=== PATIENT | female | born 1985 | race Caucasian/White ===

== ENCOUNTER 2016-09-05 15:30 | Inpatient (IN) ==
[2016-09-05] MEDS ORDERED: Vancomycin 1,500 MG in D5% in Water 250 ML IV ONE (15:54)
[2016-09-05] MEDS ORDERED: 0.9 % Sodium Chloride 1,000 ML IV SCH (16:00)
[2016-09-05] MEDS ORDERED: 0.9 % Sodium Chloride 1,000 ML IV ONE ×2 (16:09→19:11)
[2016-09-05] MEDS ORDERED: *HR* FentaNYL (PF) 100 MCG/2 ML VIAL IVP ONE (16:10)
--- NOTE | 2016-09-05 16:11 | Emergency Department Note ---
Addendum entered and electronically signed by Luke Russo DO 09/05/16 19 :17: Addendum is for EKG documentation. EKG shows sinus tachycardia at 106 with normal axis and intervals. No ST elevation or depression. There are nonspecific septal T-wave inversions. No old EKG available at this time. Original Note: Disposition Clinical Impression: Cellulitis, Sepsis Disposition: Admitted As Inpatient Condition: Serious Time of Disposition: 19:14 Skin/Abscess/FB HPI Chief complaint: ED Fever Stated complaint: abcess, infection Time Seen by Provider: 09/05/16 15:53 Source: patient, family Mode of arrival: ambulatory Limitations: no limitations Nursing Notes Reviewed: Yes Vital Signs Reviewed: Yes HPI Narrative: 21-year-old female with history of IV drug abuse presents with abscess to the left antecubital area along with turning cellulitis, fever, chills, nausea without vomiting, and malaise. She states that she last used at that site probably 4 or 5 days ago. She denies any concern for foreign bodies. She denies history of prior abscesses that required drainage. She has no other significant past medical history. States that her symptoms came on over the last 24 hours abruptly. Pt Subjective Complaint: abscess/boil Home Medications Medication Instructions Recorded Confirmed No Known Home Drugs 09/05/16 09/05/16 Allergies Allergy/AdvReac Type Severity Reaction Status Date / Time Amoxicillin Allergy Intermediate Hives Verified 08/29/16 03:21 escitalopram [From Lexapro] Allergy Hives Verified 08/29/16 03:21 All systems ED: reviewed and negative except as stated. Past Medical History - Past Medical History Attestation: Yes The following information was validated with the patient. Source: patient Medical history: Reports: atrial fibrillation, hepatitis, hypertension, migraine , other Surgical history: Reports: (x4) Psychiatric history: Reports: anxiety, bipolar, depression RESIDENTIAL NURSE history: Reports: bilateral tubal ligation - Social History Smoking Status: Current every day smoker Smokeless Tobacco Status: No Alcohol use: Reports: none Drug use: Reports: cocaine, opiates, IVDU, prescription drug abuse Physical Exam - Head Head exam: atraumatic, normocephalic, normal inspection - Eye Eye exam: Present: normal appearance, PERRL, EOMI - ENT ENT exam: normal exam, normal oropharynx, mucous membranes moist - Neck Neck exam: Present: normal inspection, full ROM, trachea midline - Chest Chest inspection: Present: normal inspection, symmetric chest wall rise - Respiratory Respiratory exam: Clear to auscultation bilaterally without wheezes rales or rhonchi Cardiovascular Cardiovascular exam: Present: regular rate, normal rhythm, normal heart sounds - Abdominal Exam Abdominal exam: Present: soft, Non-Tender. Absent: tenderness, distention, guarding, rebound, rigidity - Extremities Exam Abscess and cellulitis to the left antecubital area with significant induration and tenderness. - Back Exam Back exam: Present: normal inspection, full ROM. Absent: tenderness, CVA tenderness (R), CVA tenderness (L) - Neurological Exam Neurological exam: Present: alert, oriented X3, CN II-XII intact - Psychiatric Psychiatric exam: Present: normal affect, normal mood - Skin Skin exam: Present: warm, dry, intact, normal color - General Limitations: no limitations General appearance: alert, in no apparent distress Course - Reevaluation(s) Reevaluation #1: Bedside ultrasound shows significant cobblestoning without any clear fluid collection. Margins drawn Time: 17:04 Reevaluation #2: Labs significant for leukocytosis to 14 and lactic acidosis to 2.2. No other significant chemistry abnormalities other than mild hypokalemia to 3.0. Time: 19:12 Reevaluation #3: Accepted by Dr. Castrejon Time: 19:14 Vital Signs Temperature 102.2 F H 09/05/16 15:43 Pulse Rate 118 09/05/16 15:43 Respiratory Rate 18 09/05/16 15:43 Blood Pressure 160/107 09/05/16 15:43 O2 Sat by Pulse Oximetry 97 09/05/16 15:43 Temperature 102.2 F H 09/05/16 15:43 Pulse Rate 115 09/05/16 19:30 Respiratory Rate 18 09/05/16 20:13 Blood Pressure 155/82 09/05/16 20:13 O2 Sat by Pulse Oximetry 97 09/05/16 19:30 Oxygen Delivery Oxygen Delivery Room Air Skin/Abscess/Foreign Body - Lab Data Result diagrams: 09/05/16 16:45 09/05/16 18:34 Lab Results 09/05/16 09/05/16 09/05/16 Range/Units 16:45 16:45 18:34 WBC 14.3 H (4.3-11.1) K/mcL RBC 4.60 (3.82-4.97) M/mcL Hgb 13.8 (11.5-15.4) g/dL Hct 40.5 (35.3-44.9) % MCV 88.0 (83.0-100.0) fL MCH 30.0 (28.0-33.3) pg MCHC 34.1 (31.6-35.5) g/dL RDW 12.3 (11.5-14.5) % Plt Count 169 (140-400) K/mcL MPV 10.6 (9.4-12.4) fL Immature Gran % 0.4 (0-4) % Seg Neutrophils % 81.7 % Lymphocytes % 10.7 % Monocytes % 6.6 % Eosinophils % 0.3 % Basophils % 0.3 % Neutrophils # 11.7 H (1.6-8.9) K/mcL Lymphocytes # 1.5 (0.6-4.6) K/mcL Monocytes # 0.9 (0.0-1.3) K/mcL Eosinophils # 0.0 (0.0-0.6) K/mcL Basophils # 0.0 (0.0-0.2) K/mcL Sodium 134 L (136-145) mEq/L Potassium 3.0 L (3.5-4.5) mEq/L Chloride 104 (98-109) mEq/L Carbon Dioxide 21 (19-29) mEq/L BUN 4 L (7-20) mg/dL Creatinine 0.67 (0.57-1.11) mg/dL Est GFR ( Amer) > 60 (> 60) Est GFR (Non-Af Amer) > 60 (> 60) BUN/Creatinine Ratio 6 (6-26) Glucose 107 H (70-99) mg/dL Calculated Osmolality 275 L (280-300) Lactic Acid 2.2 (0.5-2.2) mmol/L Calcium 7.8 L (8.6-10.8) mg/dL Critical Care Time Critical Care Time: Yes Total Critical Care Time: 35 Attestation: Tachycardia and likely early bacteremia with fever. High risk due to IV drug abuse and rapidly progressive symptoms. Fluid resuscitation and antibiotics IV was required Attestation Statement - Attestation Attestation: Dr Blackwell note: Patient was seen in conjunction with resident Dr. Abdelrahman Russo; please see his chart for complete documentation. I spent [id number] time with the patient and I agree with the patient's treatment and disposition. Heart rate and pain improved prior to admission. Cultures are pending. No indication for incision and drainage at this time. Antibiotics were ordered and started in the emergency room. Admitted in stable and improved condition
[2016-09-05 17:00] LABS: Basophils % 0.3 %; Eosinophils % 0.3 %; Hematocrit 40.5 % (35.3-44.9); Hemoglobin 13.8 g/dL (11.5-15.4); Immature Granulocytes % 0.4 % (0-4); Lymphocytes # 1.5 K/mcL (0.6-4.6); Lymphocytes % 10.7 %; Mean Corpuscular HGB Conc 34.1 g/dL (31.6-35.5); Mean Platelet Volume 10.6 fL (9.4-12.4); Monocytes # 0.9 K/mcL (0.0-1.3); Monocytes % 6.6 %; Neutrophils # 11.7 K/mcL (1.6-8.9); Platelet Count 169 K/mcL (140-400); Red Cell Distribution Width 12.3 % (11.5-14.5); Segmented Neutrophils % 81.7 %
[2016-09-05] MEDS ORDERED: *HR* HYDROmorphone (PF) 1 MG/ML SYRINGE IV ONE (18:07)
[2016-09-05] MEDS ORDERED: Ondansetron 4 MG/2 ML VIAL IV STA (18:25)
[2016-09-05 18:59] LABS: BUN/Creatinine Ratio 6 (6-26); Calcium 7.8 mg/dL (8.6-10.8); Carbon Dioxide 21 mEq/L (19-29); Chloride 104 mEq/L (98-109); Glucose 107 mg/dL (70-99); Osmolality,Calculated 275 (280-300); Sodium 134 mEq/L (136-145); eGFR For African Americans > 60 (> 60); eGFR For Non-African Americans > 60 (> 60)
[2016-09-05 19:00] LABS: Blood Urea Nitrogen 4 mg/dL (7-20)
[2016-09-05] MEDS ORDERED: 0.9 % Sodium Chloride 1,000 ML IVC ONE (19:04)
[2016-09-05] MEDS ORDERED: Naloxone 0.4 MG/ML INJ IVP PRN (20:07)
--- NOTE | 2016-09-05 20:21 | Internal Med History&Physical ---
Date of Encounter: 09/05/16 Time of Encounter: 19:45 Assessment and Plan (1) Cellulitis of left upper extremity Current visit: Yes Status: Acute 1. Blood cultures have been drawn in ER. 2. Pt received Vancomycin in ER -- will continue per pharmacy dosing. 3. Add IV Levaquin for broader spectrum coverage. 4. Follow clinically and adjust treatment per clinical results. (2) Abscess of left upper extremity Current visit: Yes Status: Suspected 1. Will obtain CT of LUE. 2. Antibiotics as above. 3. Will likely need surgical I&D if there is evidence of abscess on imaging. 4. Judicious pain control with Tylenol/Ibuprofen; Oxycodone for severe pain. Discussed with patient in detail. If necessary, will add IV opiates later, but will try oral regimen first. (3) Sepsis Current visit: Yes Status: Acute 1. Pt with fever, tachycardia, and leukocytosis. 2. Pt. well perfused with no evidence of shock. 3. Continue IVF, antibiotics, telemetry and monitor clinically. 4. Likely source is skin/soft tissue -- LUE cellulitis and suspected abscess. 5. Adjust antibiotics per culture results (blood and wound -- if applicable). Qualifiers: Sepsis type: sepsis due to unspecified organism Qualified Code(s): A41.9 - Sepsis, unspecified organism (4) Hypertension Current visit: Yes Status: Chronic 1. Monitor closely and treat PRN to maintain SBP < 150. 2. Likely secondary to crack/cocaine use. 3. Avoid beta blockers due to cocaine use. 4. Pain likely exacerbating hypertension -- judicious pain control as noted above. Qualifiers: Hypertension type: other secondary hypertension Qualified Code(s): I15.8 - Other secondary hypertension (5) DVT prophylaxis Current visit: Yes Status: Acute 1. Heparin SQ. Internal Medicine - H&P: HPI Chief complaint: left arm cellulitis and abscess Admitted From: Emergency Dept Plans for Post Hospital Care: Home History of present illness: Ms. Scott is a 31 year old female who presented to the ER this evening after being referred there by the urgent care. She presented to urgent care initially today with complaints of left arm pain and swelling, fever, chills, body aches, and limited range of motion of her left arm. She uses IV drugs regularly and likely developed cellulitis and abscess secondary to infection of her injection site. Upon initial assessment in the urgent care, she was immediately referred to the ER. In the ER, she had workup including labs, blood work, and EKG. Along with her clinical exam findings, she appeared to have evidence of cellulitis and likely early sepsis. Blood cultures were drawn and she was started on IV vancomycin. She was subsequently admitted to the hospitalist service. Upon my assessment of the patient, she is alert, oriented, and very compliant with the history and exam. She has obvious pain, inflammation, and limited range of motion in her left antecubital fossa/left arm. She is tachycardic and febrile. Otherwise, she is in no acute distress. She has been using prescription drugs, street drugs, and IV drugs since 2008. She was clean from December to May this past year and then relapsed in late May,. She last used some heroin earlier today. She states that the pain, swelling, fevers , chills, and range of motion limitation all started in the last 24 hours. She denies any chest pain, shortness of breath, vomiting, or diarrhea. She has never had infection and/or abscess from the injection site. She admits to having hepatitis C secondary to IV drug abuse. She denies any hepatitis B or HIV. She does admit to having history of hypertension but has not been treated. She also uses crack cocaine infrequently, which does not help her hypertension. Past Med Surg Social Fam HX - Past Medical History Attestation: Yes The following information was validated with the patient. Source: patient, old records reviewed Medical history: atrial fibrillation (paroxysmal), hepatitis (Hepatitis C), hypertension, migraine, other (IVDA) Psychiatric history: anxiety, bipolar, depression - Past Surgical History Surgical History: (x4) - Social History Smoking Status: Current every day smoker Smokeless Tobacco Status: No Alcohol use: none Drug use: cocaine, opiates, IVDU, prescription drug abuse Current living situation: Home - Independent Activity Level: Independent ambulation Recent Out of Country Travel Within the Last 8 Weeks: No - Family History Mother Living Status: Still Living Father Living Status: (MVA) Internal Medicine - H&P: Meds No Known Home Drugs 09/05/16 [History] Allergies Amoxicillin Allergy (Intermediate, Verified 08/29/16 03:21) Hives escitalopram [From Lexapro] Allergy (Verified 08/29/16 03:21) Hives - Constitutional Constitutional: chills, fever(s), no night sweats - EENT Eyes: no blurry vision, no change in vision, no photophobia Ears: no ear pain, no tinnitus Nose, mouth and throat: no nasal congestion, no nasal discharge, no sinus pressure, no sore throat - Cardiovascular Cardiovascular ROS IM: no chest pain, no dyspnea, no dyspnea on exertion, no edema - Respiratory Respiratory: no cough, no dyspnea, no hemoptysis, no dyspnea on exertion, no wheezing, no excessive phlegm production, no change in phlegm color - Gastrointestinal Gastrointestinal: no abdominal pain, no diarrhea, no hematemesis, no hematochezia, no melena, no vomiting - Genitourinary Genitourinary: no dysuria, no flank pain, no hematuria - Musculoskeletal Musculoskeletal ROS IM: arthralgias, back pain, joint swelling, limited range of motion (DAVID -- antecubital fossa), myalgias, no muscle weakness - Integumentary Integumentary IM: rash, other (track mcneill -- injection sites), no unusual bruising, no jaundice - Neurological Neurological ROS: no dizziness, no focal weakness, no frequent falls, no vertigo - Psychiatric Psychiatric: no anxiety, no depression - Endocrine Endocrine IM: no cold intolerance, no heat intolerance, no polydipsia, no polyuria - Hematologic/Lymphatic Hematologic/Lymphatic: no easy bleeding, no lymphadenopathy - Allergic/Immunologic Allergic/Immunologic: no wheezing, no GI upset with certain foods - Constitutional Vitals: Temp Pulse Resp BP Pulse Ox 102.2 F H 115 18 154/92 97 09/05/16 15:43 09/05/16 19:30 09/05/16 19:30 09/05/16 19:30 09/05/16 19:30 General appearance: Present: cooperative, mild distress, A&O X 3, pleasant, answers questions appropriately - Head Head exam: Present: atraumatic, normal inspection - Expanded Head Exam Head exam expanded: Absent: abrasion, contusion, general tenderness - Eye Eye exam: Present: EOMI, normal appearance, PERRL (3-4mm and equally reactive). Absent: scleral icterus Pupils: Present: normal accommodation - ENT ENT exam: Present: mucous membranes moist, normal exam, normal oropharynx - Neck Neck exam general surgery: Present: full ROM, normal inspection, supple. Absent : lymphadenopathy, tenderness, nuchal rigidity, thyromegaly - Respiratory Respiratory exam: Present: CTAB. Absent: chest wall tenderness, rales, respiratory distress, rhonchi, wheezes - Cardiovascular Cardiovascular exam: Present: RRR, +S1, +S2, tachycardia. Absent: diastolic murmur, irregular rhythm, JVD, systolic murmur - GI/Abdominal GI/Abdominal exam: Present: soft. Absent: guarding, hepatomegaly, mass, rebound , splenomegaly, tenderness - Extremities Exam Extremities exam: Present: joint swelling (left antecubital fossa/elbow with swelling and limited ROM), normal capillary refill, warm, radial pulses palpable and symetrical. Absent: calf tenderness, pedal edema Additional comments: LUE with intact neuro-vasculature; pain with extension of LUE/elbow. Normal flexion and extension of left hand/wrist. - Back Exam Back exam: Present: tenderness (lumbar spine -- mild; no redness, fluctuance, or warmth noted). Absent: CVA tenderness (L), CVA tenderness (R) - Neurological Exam Neurological exam: Present: alert, CN II-XII intact, oriented X3, reflexes normal (exception -- not performed on LUE due to pain and infection of left antecubital fossa), no focal deficits (normal BLE neurologic exam and RUE; LUE neurologic exam intact with the exception of pain in LUE with extension of LUE/ elbow). Absent: motor sensory deficit - Psychiatric Psychiatric exam: Present: normal affect, normal mood - Skin Skin exam: Present: dry, rash (redness/swelling/warmth to left antecubital fossa -- no fluctuance noted at this time), warm. Absent: mottled, petechiae Internal Med - H&P Results - Labs CBC & Chem 7: 09/05/16 16:45 09/05/16 18:34 - EKG Data -: EKG Interpreted by Myself EKG shows normal: sinus rhythm Rate: tachycardia - EKG Data Prior EKG available for review: no EKG comments: 09/05/16 20:31 Sinus tachycardia with no acute changes
[2016-09-05] MEDS: *HR* OxyCODONE Immed Rel 5 MG TABLET PO PRN (21:17)
[2016-09-05 21:42] LABS: Bilirubin,Urine Negative (Negative); Blood,Urine Negative (Negative); Clarity,Urine Clear (Clear); Color,Urine Yellow (Yellow); Glucose,Urine (UA) Normal (Normal); Ketones,Urine Negative (Negative); Leukocyte Esterase,Urine Negative (Negative); Nitrite,Urine Negative (Negative); Protein,Urine Negative (Neg-Trace); Specific Gravity,Urine 1.006 (1.010-1.025); Urobilinogen,Urine Normal (Normal)
[2016-09-05] MEDS: Acetaminophen 325 MG TABLET PO PRN (22:09)
[2016-09-05] MEDS: Levofloxacin 750 MG/150 ML 750 MG/150 ML BAG IVPB SCH (22:28)
[2016-09-05] MEDS: *HR* Heparin 5,000 UNIT/ML VIAL SQ SCH (22:30)
[2016-09-05] MEDS: 0.9 % Sodium Chloride w KCl 20 MEQ/1,000 ML MLS IVC SCH (22:30)
[2016-09-05 23:18] LABS: Amphetamine Screen,Urine Negative ng/mL (Cutoff=1000); Barbiturate Screen,Urine Negative ng/mL (Cutoff=200); Benzodiazepines Screen,Urine Positive ng/mL (Cutoff=200); Cannabinoid Screen,Urine Negative ng/mL (Cutoff = 50); Cocaine Screen,Urine Positive ng/mL (Cutoff= 300); Opiate Screen,Urine Positive ng/mL (Cutoff=300); Phencyclidine Screen,Urine Negative ng/mL (Cutoff=25)
[2016-09-06] MEDS: *HR* Morphine 2 MG/ML SYRINGE IVP PRN ×3 (00:21→10:53)
[2016-09-06] MEDS: Ibuprofen 400 MG TABLET PO PRN (01:17)
[2016-09-06 05:22] LABS: Basophils % 0.2 %; Eosinophils % 0.1 %; Hematocrit 39.1 % (35.3-44.9); Hemoglobin 13.1 g/dL (11.5-15.4); Immature Granulocytes % 0.7 % (0-4); Lymphocytes # 1.6 K/mcL (0.6-4.6); Lymphocytes % 6.8 %; Mean Corpuscular HGB Conc 33.5 g/dL (31.6-35.5); Mean Corpuscular Hemoglobin 29.3 pg (28.0-33.3); Mean Corpuscular Volume 87.5 fL (83.0-100.0); Mean Platelet Volume 10.8 fL (9.4-12.4); Monocytes % 8.2 %; Neutrophils # 20.2 K/mcL (1.6-8.9); Platelet Count 168 K/mcL (140-400); Red Blood Count 4.47 M/mcL (3.82-4.97); Red Cell Distribution Width 12.3 % (11.5-14.5)
[2016-09-06 05:37] LABS: Basophils # 0.1 K/mcL (0.0-0.2)
[2016-09-06 05:38] LABS: Alanine Aminotransferase 11 Units/L (0-55); Albumin/Globulin Ratio 0.9 (1.1-2.2); Alkaline Phosphatase 67 Units/L (38-126); Aspartate Amino Transferase 10 Units/L (5-34); BUN/Creatinine Ratio 8 (6-26); Bilirubin,Total 0.8 mg/dL (0.2-1.2); Blood Urea Nitrogen 6 mg/dL (7-20); Calcium 8.6 mg/dL (8.6-10.8); Carbon Dioxide 21 mEq/L (19-29); Chloride 110 mEq/L (98-109); Globulin 3.4 g/dL (2.4-3.5); Glucose 104 mg/dL (70-99); Magnesium 1.2 mg/dL (1.6-2.6); Osmolality,Calculated 286 (280-300); Potassium 3.8 mEq/L (3.5-4.5); Sodium 139 mEq/L (136-145); Total Protein 6.4 g/dL (6.0-8.3); eGFR For African Americans > 60 (> 60); eGFR For Non-African Americans > 60 (> 60)
[2016-09-06] MEDS ORDERED: Magnesium Sulfate 2 GM in D5% in Water 100 ML IVPB ONE (06:17)
[2016-09-06] MEDS: *HR* Heparin 5,000 UNIT/ML VIAL SQ SCH ×2 (06:34→20:01)
[2016-09-06 06:42] LABS: Toxic Granulation Present (Not Present)
[2016-09-06 06:43] LABS: Platelet Estimate Normal (Normal)
[2016-09-06] MEDS ORDERED: Vancomycin 1,000 MG in D5% in Water 250 ML IVPB SCH (07:00)
[2016-09-06] MEDS ORDERED: SUMAtriptan succinate 25 MG TABLET PO ONE (08:11)
[2016-09-06] MEDS: Vancomycin 1,000 MG in D5% in Water 250 ML IVPB SCH ×2 (08:25→19:51)
[2016-09-06] MEDS: Levofloxacin 750 MG/150 ML 750 MG/150 ML BAG IVPB SCH (08:26)
[2016-09-06] MEDS: *HR* OxyCODONE Immed Rel 5 MG TABLET PO PRN ×2 (08:33→17:38)
[2016-09-06] MEDS: 0.9 % Sodium Chloride w KCl 20 MEQ/1,000 ML MLS IVC SCH ×2 (08:34→16:39)
--- NOTE | 2016-09-06 11:48 | Internal Med Progress Note ---
Date of Encounter: 09/06/16 Time of Encounter: 09:00 - Time Spent With Patient Greater than 35 minutes - Subjective Interval history: Patient is a 31-year-old female admitted for left arm cellulitis. Her past medical history is significant for paroxysmal A. fib, hepatitis C, hypertension , migraine, and IV drug use. Patient was seen and examined, she still complains of left arm pain and the swelling. Limited the range of movement of left elbow. On Vanco and Levaquin. The size of cellulitis is enlarged. Will add clindamycin to cover anaerobic. Continue IV fluid. Lactic acid level is getting down. Assessment and plan: 1: Cellulitis: Patient has cellulitis on left arm, CAT scan shows no abscess, no septic arthritis. Will continue antibiotic Vanco, Levaquin, add clindamycin to cover anaerobic. Follow-up a blood culture. Patient is at high risk because she is on vancomycin, need close monitoring. 2: Sepsis: Patient has fever, tachycardia, leukocytosis, meets criteria of sepsis. IV fluid resuscitation started the ER, on IV antibiotics. Lactate level gets down after IV fluid. 3: Hypertension: Adequate pain control, hydralazine IV when necessary. Closely follow-up of BP. Avoid beta lito because patient is a cocaine user. 4: IV drug abuse: Continue current treatment, patient said she had HIV tests years before, which was negative. 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 5: DVT prophylaxis: Heparin subcutaneously. - Constitutional Vitals: Temp Pulse Resp BP Pulse Ox 99.2 F 102 22 138/92 98 09/06/16 08:17 09/06/16 08:17 09/06/16 08:17 09/06/16 08:17 09/06/16 08:17 General appearance: Present: cooperative, mild distress, A&O X 3, pleasant, answers questions appropriately - Head Head exam: Present: atraumatic, normocephalic - Eye Eye exam: Present: PERRL, conjuntiva pink, sclera anicteric Pupils: Present: PERRL - Neck Neck exam general surgery: Present: supple, trachea midline. Absent: lymphadenopathy - Respiratory Respiratory exam: Present: CTAB. Absent: accessory muscle use, rales, rhonchi, wheezes - Cardiovascular Cardiovascular exam: Present: RRR, +S1, +S2. Absent: diastolic murmur, gallop, rubs, systolic murmur - GI/Abdominal GI/Abdominal exam: Present: normal bowel sounds, soft, no peritoneal signs. Absent: distended, tenderness - Extremities Exam Extremities exam: Present: warm, radial pulses palpable and symetrical. Absent : calf tenderness, cyanotic, pedal edema Additional comments: Left arm is swelling, with redness and warmth of the skin, severe tenderness. - Neurological Exam Neurological exam: Present: CN II-XII intact, oriented X3, no focal deficits. Absent: pronater drift, facial droop, speech deficit - Skin Skin exam: Present: dry, intact Internal Medicine: Result - Labs CBC & Chem 7: 09/06/16 04:37 09/06/16 04:37 Labs: Short CBC 09/06/16 Range/Units 04:37 WBC 24.0 H D (4.3-11.1) K/mcL Hgb 13.1 (11.5-15.4) g/dL Hct 39.1 (35.3-44.9) % Plt Count 168 (140-400) K/mcL Neutrophils # 20.2 H (1.6-8.9) K/mcL BMP 09/06/16 04:37 Sodium 139 Potassium 3.8 Chloride 110 H Carbon Dioxide 21 BUN 6 L Creatinine 0.71 Glucose 104 H Calcium 8.6 Liver Function 09/06/16 Range/Units 04:37 Total Bilirubin 0.8 (0.2-1.2) mg/dL AST 10 (5-34) Units/L ALT 11 (0-55) Units/L Alkaline Phosphatase 67 (38-126) Units/L Albumin 3.0 L (3.5-5.0) g/dL Urine 09/05/16 Range/Units 21:28 Urine Color Yellow (Yellow) Urine Clarity Clear (Clear) Urine pH 6.0 (5.0-8.0) pH Units Ur Specific Dawson 1.006 L (1.010-1.025) Urine Protein Negative (Neg-Trace) mg/dL Urine Glucose (UA) Normal (Normal) mg/dL Consult Discharge Plan - Plan Referrals: Isela Iniguez MD [Primary Care Provider] -
[2016-09-06] MEDS ORDERED: *HR* HYDROmorphone 2 MG/ML SYRINGE IVP PRN (12:26)
--- NOTE | 2016-09-06 14:28 | Electrocardiograph Report ---
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
[2016-09-06] MEDS: Clindamycin 600 MG/50 ML 600 MG/50 ML IV.SOLN IVPB SCH (16:39)
[2016-09-06] MEDS: *HR* HYDROmorphone (PF) 1 MG/ML SYRINGE IVP PRN ×3 (16:45→23:05)
[2016-09-06] MEDS ORDERED: Meropenem 1,000 MG in 0.9 % Sodium Chloride Mini Bag 100 ML IVPB ONE (17:03)
[2016-09-06] MEDS: 0.9 % Sodium Chloride 1,000 ML IVC SCH (17:41)
[2016-09-06] MEDS: cloNIDine HCl 0.1 MG TABLET PO SCH (19:51)
[2016-09-06] MEDS: Acetaminophen 325 MG TABLET PO PRN (21:28)
[2016-09-07] MEDS: Clindamycin 600 MG/50 ML 600 MG/50 ML IV.SOLN IVPB SCH ×4 (00:10→23:27)
[2016-09-07] MEDS: Ibuprofen 400 MG TABLET PO PRN ×2 (01:01→17:42)
[2016-09-07] MEDS: 0.9 % Sodium Chloride 1,000 ML IVC SCH ×2 (03:58→17:21)
[2016-09-07] MEDS: *HR* OxyCODONE Immed Rel 5 MG TABLET PO PRN (03:59)
[2016-09-07 06:12] LABS: Basophils # 0.1 K/mcL (0.0-0.2); Basophils % 0.3 %; Eosinophils # 0.1 K/mcL (0.0-0.6); Eosinophils % 0.5 %; Hematocrit 36.2 % (35.3-44.9); Hemoglobin 12.4 g/dL (11.5-15.4); Immature Granulocytes % 0.7 % (0-4); Lymphocytes # 1.3 K/mcL (0.6-4.6); Lymphocytes % 7.3 %; Mean Corpuscular HGB Conc 34.3 g/dL (31.6-35.5); Mean Corpuscular Hemoglobin 29.7 pg (28.0-33.3); Mean Corpuscular Volume 86.8 fL (83.0-100.0); Mean Platelet Volume 10.3 fL (9.4-12.4); Monocytes # 1.2 K/mcL (0.0-1.3); Monocytes % 6.7 %; Neutrophils # 15.5 K/mcL (1.6-8.9); Platelet Count 145 K/mcL (140-400); Red Blood Count 4.17 M/mcL (3.82-4.97); Red Cell Distribution Width 12.4 % (11.5-14.5); Segmented Neutrophils % 84.5 %
[2016-09-07 06:20] LABS: BUN/Creatinine Ratio 10 (6-26); Blood Urea Nitrogen 6 mg/dL (7-20); Calcium 8.6 mg/dL (8.6-10.8); Carbon Dioxide 19 mEq/L (19-29); Chloride 109 mEq/L (98-109); Glucose 106 mg/dL (70-99); Osmolality,Calculated 282 (280-300); Potassium 3.4 mEq/L (3.5-4.5); Sodium 137 mEq/L (136-145); eGFR For African Americans > 60 (> 60); eGFR For Non-African Americans > 60 (> 60)
[2016-09-07] MEDS ORDERED: Potassium Chloride Elixir 20 MEQ/15 ML UDC PO ONE (07:16)
[2016-09-07] MEDS: Vancomycin 1,000 MG in D5% in Water 250 ML IVPB SCH ×3 (07:57→23:28)
[2016-09-07] MEDS: *HR* Heparin 5,000 UNIT/ML VIAL SQ SCH ×2 (07:57→19:33)
[2016-09-07] MEDS: cloNIDine HCl 0.1 MG TABLET PO SCH ×3 (07:58→20:20)
[2016-09-07] MEDS: Levofloxacin 750 MG/150 ML 750 MG/150 ML BAG IVPB SCH (07:58)
[2016-09-07] MEDS: *HR* HYDROmorphone (PF) 1 MG/ML SYRINGE IVP PRN ×5 (07:59→23:25)
[2016-09-07] MEDS ORDERED: Ondansetron 4 MG/2 ML VIAL IVP PRN (10:57)
--- NOTE | 2016-09-07 13:06 | Internal Med Progress Note ---
Date of Encounter: 09/07/16 Time of Encounter: 09:00 - Assessment and plan (1) Cellulitis of left upper extremity Current Visit: Yes Status: Acute Assessment and plan: Patient has cellulitis on left arm, CAT scan shows no abscess, no septic arthritis. Will continue antibiotic Vanco, Levaquin, and clindamycin. Blood culture negative. Consider to repeat CT tomorrow to rule out abscess formation. Patient is at high risk because she is on vancomycin, need close monitoring. (2) Sepsis Current Visit: Yes Status: Acute Assessment and plan: Patient has fever, tachycardia, leukocytosis, meets criteria of sepsis. IV fluid resuscitation started the ER, on IV antibiotics. Lactate level gets down after IV fluid. Will continue IV fluid and antibiotic treatment. Qualifiers: Sepsis type: sepsis due to unspecified organism Qualified Code(s): A41.9 - Sepsis, unspecified organism (3) Hypertension Current Visit: Yes Status: Chronic Assessment and plan: Adequate pain control, hydralazine IV when necessary. Closely follow-up of BP. Avoid beta lito because patient is a cocaine user. BP is stable now Qualifiers: Hypertension type: other secondary hypertension Qualified Code(s): I15.8 - Other secondary hypertension (4) Heroin abuse Current Visit: No Status: Acute Assessment and plan: Continue current treatment, patient said she had HIV tests years before, which was negative. 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 (5) DVT prophylaxis Current Visit: Yes Status: Acute Assessment and plan: Heparin subcutaneously. - Subjective Interval history: Patient is a 31-year-old female admitted for left arm cellulitis. Her past medical history is significant for paroxysmal A. fib, hepatitis C, hypertension , migraine, and IV drug use. Patient was seen and examined, she still complains of left arm pain and the swelling, redness, warmth and tenderness move up to more proximal of the arm. Limited the range of movement of left elbow and should. Patient is still having low fever. WBC trended down. On Vanco and Levaquin and clindamycin. Continue IV fluid. Blood culture negative. We will consider repeat CT tomorrow to rule out abscess formation. - Constitutional Vitals: Temp Pulse Resp BP Pulse Ox 98.8 F 93 18 134/84 99 09/07/16 12:23 09/07/16 12:23 09/07/16 12:23 09/07/16 12:23 09/07/16 12:23 General appearance: Present: cooperative, mild distress, A&O X 3, pleasant, answers questions appropriately Internal Medicine: Result - Labs CBC & Chem 7: 09/07/16 05:50 09/07/16 05:50 Labs: Short CBC 09/07/16 Range/Units 05:50 WBC 18.3 H (4.3-11.1) K/mcL Hgb 12.4 (11.5-15.4) g/dL Hct 36.2 (35.3-44.9) % Plt Count 145 (140-400) K/mcL Neutrophils # 15.5 H (1.6-8.9) K/mcL BMP 09/07/16 05:50 Sodium 137 Potassium 3.4 L Chloride 109 Carbon Dioxide 19 BUN 6 L Creatinine 0.60 Glucose 106 H Calcium 8.6 Consult Discharge Plan - Plan Referrals: Isela Iniguez MD [Primary Care Provider] -
[2016-09-07] MEDS: Ondansetron 4 MG/2 ML VIAL IVP PRN (17:21)
[2016-09-07] MEDS: *HR* OxyCODONE/APAP 10/325 TABLET PO PRN (20:20)
[2016-09-08] MEDS: 0.9 % Sodium Chloride 1,000 ML IVC SCH ×3 (02:17→17:46)
[2016-09-08] MEDS: *HR* OxyCODONE/APAP 10/325 TABLET PO PRN ×3 (02:18→17:45)
[2016-09-08 03:36] LABS: Basophils % 0.3 %; Eosinophils # 0.3 K/mcL (0.0-0.6); Eosinophils % 2.3 %; Hematocrit 31.8 % (35.3-44.9); Immature Granulocytes % 0.6 % (0-4); Lymphocytes # 1.9 K/mcL (0.6-4.6); Lymphocytes % 15.2 %; Mean Corpuscular HGB Conc 33.3 g/dL (31.6-35.5); Mean Corpuscular Hemoglobin 29.5 pg (28.0-33.3); Mean Corpuscular Volume 88.6 fL (83.0-100.0); Mean Platelet Volume 10.7 fL (9.4-12.4); Monocytes # 0.9 K/mcL (0.0-1.3); Monocytes % 7.4 %; Platelet Count 145 K/mcL (140-400); Red Blood Count 3.59 M/mcL (3.82-4.97); Red Cell Distribution Width 12.5 % (11.5-14.5); Segmented Neutrophils % 74.2 %
[2016-09-08 03:37] LABS: Hemoglobin 10.6 g/dL (11.5-15.4)
[2016-09-08 03:56] LABS: BUN/Creatinine Ratio 13 (6-26); Blood Urea Nitrogen 9 mg/dL (7-20); Calcium 8.2 mg/dL (8.6-10.8); Carbon Dioxide 20 mEq/L (19-29); Chloride 112 mEq/L (98-109); Glucose 120 mg/dL (70-99); Magnesium 1.6 mg/dL (1.6-2.6); Osmolality,Calculated 290 (280-300); Potassium 3.7 mEq/L (3.5-4.5); Sodium 140 mEq/L (136-145); eGFR For African Americans > 60 (> 60); eGFR For Non-African Americans > 60 (> 60)
[2016-09-08] MEDS: *HR* HYDROmorphone (PF) 1 MG/ML SYRINGE IVP PRN ×5 (05:19→23:56)
[2016-09-08] MEDS: *HR* Heparin 5,000 UNIT/ML VIAL SQ SCH ×2 (06:02→17:45)
[2016-09-08] MEDS: Clindamycin 600 MG/50 ML 600 MG/50 ML IV.SOLN IVPB SCH ×3 (08:14→23:37)
[2016-09-08] MEDS: Vancomycin 1,000 MG in D5% in Water 250 ML IVPB SCH ×3 (08:15→23:39)
[2016-09-08] MEDS: Levofloxacin 750 MG/150 ML 750 MG/150 ML BAG IVPB SCH (08:15)
[2016-09-08] MEDS: cloNIDine HCl 0.1 MG TABLET PO SCH ×3 (08:15→20:44)
--- NOTE | 2016-09-08 11:13 | Internal Med Progress Note ---
Date of Encounter: 09/08/16 Time of Encounter: 09:00 - Assessment and plan (1) Cellulitis of left upper extremity Current Visit: Yes Status: Acute Assessment and plan: Patient has cellulitis on left arm, CAT scan shows no abscess, no septic arthritis. Will continue antibiotic Vanco, Levaquin, and clindamycin. Blood culture negative. Repeat CT shows no abscess formation. Patient is at high risk because she is on vancomycin, need close monitoring. (2) Sepsis Current Visit: Yes Status: Acute Assessment and plan: Patient has fever, tachycardia, leukocytosis, meets criteria of sepsis. IV fluid resuscitation started the ER, on IV antibiotics. Lactate level gets down after IV fluid. Will continue IV fluid and antibiotic treatment. Qualifiers: Sepsis type: sepsis due to unspecified organism Qualified Code(s): A41.9 - Sepsis, unspecified organism (3) Hypertension Current Visit: Yes Status: Chronic Assessment and plan: Adequate pain control, resume home medication clonidine 0.1 mg 3 times a day. hydralazine IV when necessary. Closely follow-up of BP. Avoid beta lito because patient is a cocaine user. BP is stable now Qualifiers: Hypertension type: other secondary hypertension Qualified Code(s): I15.8 - Other secondary hypertension (4) Heroin abuse Current Visit: No Status: Acute Assessment and plan: Continue current treatment, patient said she had HIV tests years before, which was negative. panel lay up worker consult for possible detox referral. (5) DVT prophylaxis Current Visit: Yes Status: Acute Assessment and plan: Heparin subcutaneously. - Time Spent With Patient Greater than 35 minutes - Subjective Interval history: Patient is a 31-year-old female admitted for left arm cellulitis. Her past medical history is significant for paroxysmal A. fib, hepatitis C, hypertension , migraine, and IV drug use. Patient was seen and examined, she feels better. Less pain on the arm. No fever, vital signs stable. WBC is getting down. Repeat CT shows that there is no ABSCESS. Will continue current medication. Blood culture negative. - Constitutional Vitals: Temp Pulse Resp BP Pulse Ox 98.0 F 78 16 114/71 99 09/08/16 10:00 09/08/16 10:00 09/08/16 10:00 09/08/16 10:00 09/08/16 10:00 General appearance: Present: cooperative, mild distress, A&O X 3, pleasant, answers questions appropriately - Head Head exam: Present: atraumatic, normocephalic - Eye Eye exam: Present: PERRL, conjuntiva pink, sclera anicteric Pupils: Present: PERRL - Neck Neck exam general surgery: Present: supple, trachea midline. Absent: lymphadenopathy - Respiratory Respiratory exam: Present: CTAB. Absent: accessory muscle use, rales, rhonchi, wheezes - Cardiovascular Cardiovascular exam: Present: RRR, +S1, +S2. Absent: diastolic murmur, gallop, rubs, systolic murmur - GI/Abdominal GI/Abdominal exam: Present: normal bowel sounds, soft, no peritoneal signs. Absent: distended, tenderness - Extremities Exam Extremities exam: Present: warm, radial pulses palpable and symetrical. Absent : calf tenderness, cyanotic, pedal edema Additional comments: Left humerus swelling, nontension, tenderness with redness and warmth. Left radial A pulse 2+ - Neurological Exam Neurological exam: Present: CN II-XII intact, oriented X3, no focal deficits. Absent: pronater drift, facial droop, speech deficit - Skin Skin exam: Present: dry, intact Internal Medicine: Result - Labs CBC & Chem 7: 09/08/16 03:13 09/08/16 03:13 Labs: Short CBC 09/08/16 Range/Units 03:13 WBC 12.1 H (4.3-11.1) K/mcL Hgb 10.6 L D (11.5-15.4) g/dL Hct 31.8 L (35.3-44.9) % Plt Count 145 (140-400) K/mcL Neutrophils # 9.0 H (1.6-8.9) K/mcL BMP 09/08/16 03:13 Sodium 140 Potassium 3.7 Chloride 112 H Carbon Dioxide 20 BUN 9 Creatinine 0.68 Glucose 120 H Calcium 8.2 L - Impressions Impressions Upper Extremity CT 09/08/16 08:16 IMPRESSION: No rim enhancing fluid collection seen within the soft tissues. Diffuse edema seen within the subcutaneous fat, compatible with cellulitis Abnormal muscular edema in the arm, suggesting concomitant myositis. Recommend clinical correlation for any signs of compartment syndrome. D/ / Miguel Braga MD / Miguel Braga MD Interpreting Provider: Miguel Braga MD Consult Discharge Plan - Plan Referrals: Isela Iniguez MD [Primary Care Provider] -
[2016-09-08] MEDS: Ondansetron 4 MG/2 ML VIAL IVP PRN (17:44)
[2016-09-09] MEDS: Ibuprofen 400 MG TABLET PO PRN ×4 (02:27→23:44)
[2016-09-09] MEDS: *HR* OxyCODONE/APAP 10/325 TABLET PO PRN ×4 (02:30→23:44)
[2016-09-09] MEDS: 0.9 % Sodium Chloride 1,000 ML IVC SCH (04:33)
[2016-09-09] MEDS: Ondansetron 4 MG/2 ML VIAL IVP PRN ×2 (05:50→15:25)
[2016-09-09] MEDS: *HR* HYDROmorphone (PF) 1 MG/ML SYRINGE IVP PRN ×4 (05:53→20:56)
[2016-09-09] MEDS: *HR* Heparin 5,000 UNIT/ML VIAL SQ SCH ×2 (05:55→17:34)
[2016-09-09 07:29] LABS: Basophils % 0.5 %; Eosinophils # 0.2 K/mcL (0.0-0.6); Eosinophils % 3.2 %; Hematocrit 32.8 % (35.3-44.9); Hemoglobin 10.8 g/dL (11.5-15.4); Immature Granulocytes % 1.1 % (0-4); Lymphocytes # 1.9 K/mcL (0.6-4.6); Lymphocytes % 29.2 %; Mean Corpuscular HGB Conc 32.9 g/dL (31.6-35.5); Mean Corpuscular Hemoglobin 29.4 pg (28.0-33.3); Mean Corpuscular Volume 89.4 fL (83.0-100.0); Mean Platelet Volume 10.5 fL (9.4-12.4); Monocytes # 0.4 K/mcL (0.0-1.3); Monocytes % 6.3 %; Neutrophils # 3.9 K/mcL (1.6-8.9); Platelet Count 157 K/mcL (140-400); Red Blood Count 3.67 M/mcL (3.82-4.97); Red Cell Distribution Width 12.6 % (11.5-14.5); Segmented Neutrophils % 59.7 %
[2016-09-09 07:41] LABS: BUN/Creatinine Ratio 10 (6-26); Blood Urea Nitrogen 6 mg/dL (7-20); Calcium 8.5 mg/dL (8.6-10.8); Carbon Dioxide 21 mEq/L (19-29); Chloride 110 mEq/L (98-109); Glucose 100 mg/dL (70-99); Osmolality,Calculated 290 (280-300); Potassium 3.6 mEq/L (3.5-4.5); Sodium 141 mEq/L (136-145); eGFR For African Americans > 60 (> 60); eGFR For Non-African Americans > 60 (> 60)
[2016-09-09] MEDS: Levofloxacin 750 MG/150 ML 750 MG/150 ML BAG IVPB SCH (08:58)
[2016-09-09] MEDS: Vancomycin 1,000 MG in D5% in Water 250 ML IVPB SCH ×3 (08:58→23:44)
[2016-09-09] MEDS: cloNIDine HCl 0.1 MG TABLET PO SCH ×3 (08:59→20:55)
[2016-09-09] MEDS: Clindamycin 600 MG/50 ML 600 MG/50 ML IV.SOLN IVPB SCH ×3 (08:59→23:43)
--- NOTE | 2016-09-09 10:11 | Internal Med Progress Note ---
Date of Encounter: 09/09/16 Time of Encounter: 09:00 - Assessment and plan (1) Cellulitis of left upper extremity Current Visit: Yes Status: Acute Assessment and plan: Patient has cellulitis on left arm, CAT scan shows no abscess, no septic arthritis. Will continue antibiotic Vanco, Levaquin, and clindamycin. Blood culture negative. Repeat CT shows no abscess formation. CT shows myositis, need to watch for compartment syndrome, so far the arm is non tensive, pulse is ok, no signs of FABIOLA or hyperkalemia. No dark urine. Patient is at high risk because she is on vancomycin, need close monitoring. (2) Sepsis Current Visit: Yes Status: Acute Assessment and plan: Patient has fever, tachycardia, leukocytosis, meets criteria of sepsis. IV fluid resuscitation started the ER, on IV antibiotics. Lactate level gets down after IV fluid. Will continue IV fluid and antibiotic treatment. Qualifiers: Sepsis type: sepsis due to unspecified organism Qualified Code(s): A41.9 - Sepsis, unspecified organism (3) Hypertension Current Visit: Yes Status: Chronic Assessment and plan: Adequate pain control, resume home medication clonidine 0.1 mg 3 times a day. hydralazine IV when necessary. Closely follow-up of BP. Avoid beta lito because patient is a cocaine user. BP is stable now Qualifiers: Hypertension type: other secondary hypertension Qualified Code(s): I15.8 - Other secondary hypertension (4) Heroin abuse Current Visit: No Status: Acute Assessment and plan: Continue current treatment, patient said she had HIV tests years before, which was negative. button station worker consult for possible detox referral. (5) DVT prophylaxis Current Visit: Yes Status: Acute Assessment and plan: Heparin subcutaneously. - Time Spent With Patient Greater than 35 minutes - Subjective Interval history: Patient is a 31-year-old female admitted for left arm cellulitis. Her past medical history is significant for paroxysmal A. fib, hepatitis C, hypertension , migraine, and IV drug use. Patient was seen and examined, she feels better. Less pain on the arm. No fever, vital signs stable. WBC is getting down to normal. Arm is nontension. Left radial pulse is good. Will continue current medication. Blood culture negative. - Constitutional Vitals: Temp Pulse Resp BP Pulse Ox 97.4 F L 67 16 130/90 100 09/09/16 08:20 09/09/16 08:20 09/09/16 08:20 09/09/16 08:20 09/09/16 08:20 General appearance: Present: cooperative, mild distress, A&O X 3, pleasant, answers questions appropriately - Head Head exam: Present: atraumatic, normocephalic - Eye Eye exam: Present: PERRL, conjuntiva pink, sclera anicteric Pupils: Present: PERRL - Neck Neck exam general surgery: Present: supple, trachea midline. Absent: lymphadenopathy - Respiratory Respiratory exam: Present: CTAB. Absent: accessory muscle use, rales, rhonchi, wheezes - Cardiovascular Cardiovascular exam: Present: RRR, +S1, +S2. Absent: diastolic murmur, gallop, rubs, systolic murmur - GI/Abdominal GI/Abdominal exam: Present: normal bowel sounds, soft, no peritoneal signs. Absent: distended, tenderness - Extremities Exam Extremities exam: Present: warm, radial pulses palpable and symetrical. Absent : calf tenderness, cyanotic, pedal edema Additional comments: Left arm is swelling, tender, redness and warmth - Neurological Exam Neurological exam: Present: CN II-XII intact, oriented X3, no focal deficits. Absent: pronater drift, facial droop, speech deficit - Skin Skin exam: Present: dry, intact Internal Medicine: Result - Labs CBC & Chem 7: 09/09/16 07:21 09/09/16 07:21 Labs: Short CBC 09/09/16 Range/Units 07:21 WBC 6.5 (4.3-11.1) K/mcL Hgb 10.8 L (11.5-15.4) g/dL Hct 32.8 L (35.3-44.9) % Plt Count 157 (140-400) K/mcL Neutrophils # 3.9 (1.6-8.9) K/mcL BMP 09/09/16 07:21 Sodium 141 Potassium 3.6 Chloride 110 H Carbon Dioxide 21 BUN 6 L Creatinine 0.62 Glucose 100 H Calcium 8.5 L Consult Discharge Plan - Plan Referrals: Isela Iniguez MD [Primary Care Provider] -
[2016-09-09] MEDS: Lactobacillus 1 EACH CAP.SPRINK PO SCH (12:35)
[2016-09-10 00:06] LABS: Bilirubin,Urine Negative (Negative); Blood,Urine Negative (Negative); Clarity,Urine Clear (Clear); Color,Urine Yellow (Yellow); Glucose,Urine (UA) Normal (Normal); Ketones,Urine Negative (Negative); Leukocyte Esterase,Urine Negative (Negative); Nitrite,Urine Negative (Negative); Protein,Urine Negative (Neg-Trace); Specific Gravity,Urine 1.019 (1.010-1.025); Urobilinogen,Urine Normal (Normal)
[2016-09-10] MEDS: *HR* HYDROmorphone (PF) 1 MG/ML SYRINGE IVP PRN ×5 (02:59→19:15)
[2016-09-10 03:14] LABS: Basophils # 0.1 K/mcL (0.0-0.2); Basophils % 0.8 %; Eosinophils # 0.2 K/mcL (0.0-0.6); Hematocrit 36.8 % (35.3-44.9); Hemoglobin 12.2 g/dL (11.5-15.4); Lymphocytes # 2.1 K/mcL (0.6-4.6); Lymphocytes % 28.6 %; Mean Corpuscular HGB Conc 33.2 g/dL (31.6-35.5); Mean Corpuscular Hemoglobin 29.8 pg (28.0-33.3); Mean Corpuscular Volume 89.8 fL (83.0-100.0); Mean Platelet Volume 10.6 fL (9.4-12.4); Monocytes # 0.5 K/mcL (0.0-1.3); Monocytes % 6.9 %; Neutrophils # 4.3 K/mcL (1.6-8.9); Platelet Count 186 K/mcL (140-400); Red Cell Distribution Width 12.6 % (11.5-14.5); Segmented Neutrophils % 59.7 %
[2016-09-10] MEDS: Fluconazole 100 MG TABLET PO SCH (03:16)
[2016-09-10 03:28] LABS: BUN/Creatinine Ratio 11 (6-26); Blood Urea Nitrogen 8 mg/dL (7-20); Carbon Dioxide 22 mEq/L (19-29); Chloride 108 mEq/L (98-109); Glucose 96 mg/dL (70-99); Osmolality,Calculated 290 (280-300); Potassium 3.6 mEq/L (3.5-4.5); Sodium 141 mEq/L (136-145); eGFR For African Americans > 60 (> 60); eGFR For Non-African Americans > 60 (> 60)
[2016-09-10] MEDS: *HR* OxyCODONE/APAP 10/325 TABLET PO PRN ×3 (06:52→20:56)
[2016-09-10] MEDS: Ibuprofen 400 MG TABLET PO PRN ×3 (06:52→20:56)
[2016-09-10] MEDS: *HR* Heparin 5,000 UNIT/ML VIAL SQ SCH ×2 (06:55→18:50)
[2016-09-10] MEDS: Vancomycin 1,000 MG in D5% in Water 250 ML IVPB SCH ×3 (08:34→23:57)
[2016-09-10] MEDS: Clindamycin 600 MG/50 ML 600 MG/50 ML IV.SOLN IVPB SCH (08:34)
[2016-09-10] MEDS: Lactobacillus 1 EACH CAP.SPRINK PO SCH (08:35)
[2016-09-10] MEDS: levoFLOXacin 500 MG TABLET PO SCH (08:35)
[2016-09-10] MEDS: cloNIDine HCl 0.1 MG TABLET PO SCH ×3 (08:35→20:56)
[2016-09-10] MEDS: levoFLOXacin 250 MG TABLET PO SCH (08:36)
--- NOTE | 2016-09-10 14:15 | Internal Med Progress Note ---
Date of Encounter: 09/10/16 Time of Encounter: 08:00 - Assessment and plan (1) Cellulitis of left upper extremity Current Visit: Yes Status: Acute Assessment and plan: Patient has cellulitis on left arm, CAT scan shows no abscess, no septic arthritis. Will continue antibiotic Vanco, Levaquin, d/c clindamycin. Blood culture negative. Repeat CT shows no abscess formation. CT shows myositis, need to watch for compartment syndrome, so far the arm is non tensive, pulse is ok, no signs of FABIOLA or hyperkalemia. No dark urine. Patient is at high risk because she is on vancomycin, need close monitoring. (2) Sepsis Current Visit: Yes Status: Acute Assessment and plan: Patient has fever, tachycardia, leukocytosis, meets criteria of sepsis. IV fluid resuscitation started the ER, on IV antibiotics. Lactate level gets down after IV fluid. Will continue antibiotic treatment. Qualifiers: Sepsis type: sepsis due to unspecified organism Qualified Code(s): A41.9 - Sepsis, unspecified organism (3) Hypertension Current Visit: Yes Status: Chronic Assessment and plan: Adequate pain control, resume home medication clonidine 0.1 mg 3 times a day. hydralazine IV when necessary. Closely follow-up of BP. Avoid beta lito because patient is a cocaine user. BP is stable now Qualifiers: Hypertension type: other secondary hypertension Qualified Code(s): I15.8 - Other secondary hypertension (4) Heroin abuse Current Visit: No Status: Acute Assessment and plan: Continue current treatment, patient said she had HIV tests years before, which was negative. research worker encyclopedia consult for possible detox referral. (5) DVT prophylaxis Current Visit: Yes Status: Acute Assessment and plan: Heparin subcutaneously. - Time Spent With Patient Greater than 35 minutes - Subjective Interval history: Patient is a 31-year-old female admitted for left arm cellulitis. Her past medical history is significant for paroxysmal A. fib, hepatitis C, hypertension , migraine, and IV drug use. Patient was seen and examined, she feels much better. Less pain on the arm. Less swelling and the redness. No fever, vital signs stable. WBC is getting down to normal. Arm is nontension. Left radial pulse is good. Will continue current medication. Blood culture negative. - Constitutional Vitals: Temp Pulse Resp BP Pulse Ox 98.2 F 74 16 123/77 98 09/10/16 10:35 09/10/16 10:35 09/10/16 10:35 09/10/16 10:35 09/10/16 10:35 General appearance: Present: cooperative, mild distress, A&O X 3, pleasant, answers questions appropriately - Head Head exam: Present: atraumatic, normocephalic - Eye Eye exam: Present: PERRL, conjuntiva pink, sclera anicteric Pupils: Present: PERRL - Neck Neck exam general surgery: Present: supple, trachea midline. Absent: lymphadenopathy - Respiratory Respiratory exam: Present: CTAB. Absent: accessory muscle use, rales, rhonchi, wheezes - Cardiovascular Cardiovascular exam: Present: RRR, +S1, +S2. Absent: diastolic murmur, gallop, rubs, systolic murmur - GI/Abdominal GI/Abdominal exam: Present: normal bowel sounds, soft, no peritoneal signs. Absent: distended, tenderness - Extremities Exam Extremities exam: Present: warm, radial pulses palpable and symetrical. Absent : calf tenderness, cyanotic, pedal edema Additional comments: Left arm is tender, with redness and warmth - Neurological Exam Neurological exam: Present: CN II-XII intact, oriented X3, no focal deficits. Absent: pronater drift, facial droop, speech deficit - Skin Skin exam: Present: dry, intact Internal Medicine: Result - Labs CBC & Chem 7: 09/10/16 02:50 09/10/16 02:50 Labs: Short CBC 09/10/16 Range/Units 02:50 WBC 7.2 (4.3-11.1) K/mcL Hgb 12.2 (11.5-15.4) g/dL Hct 36.8 (35.3-44.9) % Plt Count 186 (140-400) K/mcL Neutrophils # 4.3 (1.6-8.9) K/mcL BMP 09/10/16 02:50 Sodium 141 Potassium 3.6 Chloride 108 Carbon Dioxide 22 BUN 8 Creatinine 0.70 Glucose 96 Calcium 9.0 Urine 09/09/16 Range/Units 23:25 Urine Color Yellow (Yellow) Urine Clarity Clear (Clear) Urine pH 6.0 (5.0-8.0) pH Units Ur Specific [place] 1.019 (1.010-1.025) Urine Protein Negative (Neg-Trace) mg/dL Urine Glucose (UA) Normal (Normal) mg/dL Consult Discharge Plan - Plan Referrals: Isela Iniguez MD [Primary Care Provider] -
[2016-09-10] MEDS: Ondansetron 4 MG/2 ML VIAL IVP PRN (16:02)
[2016-09-10] MEDS: Melatonin 3 MG TABLET PO SCH (20:55)
[2016-09-10] MEDS: traZODone 50 MG TABLET PO SCH (20:56)
[2016-09-11] MEDS: *HR* HYDROmorphone (PF) 1 MG/ML SYRINGE IVP PRN ×4 (02:30→20:50)
[2016-09-11] MEDS: *HR* OxyCODONE/APAP 10/325 TABLET PO PRN ×3 (06:07→19:23)
[2016-09-11] MEDS: *HR* Heparin 5,000 UNIT/ML VIAL SQ SCH ×2 (06:09→18:32)
[2016-09-11 06:10] LABS: Basophils # 0.1 K/mcL (0.0-0.2); Basophils % 0.8 %; Eosinophils # 0.2 K/mcL (0.0-0.6); Eosinophils % 3.2 %; Hemoglobin 11.5 g/dL (11.5-15.4); Immature Platelets 3.5 % (1.1-6.1); Lymphocytes # 2.2 K/mcL (0.6-4.6); Lymphocytes % 30.3 %; Mean Corpuscular HGB Conc 32.9 g/dL (31.6-35.5); Mean Corpuscular Hemoglobin 29.4 pg (28.0-33.3); Mean Corpuscular Volume 89.5 fL (83.0-100.0); Mean Platelet Volume 10.3 fL (9.4-12.4); Monocytes # 0.5 K/mcL (0.0-1.3); Monocytes % 6.8 %; Platelet Count 197 K/mcL (140-400); Red Blood Count 3.91 M/mcL (3.82-4.97); Red Cell Distribution Width 12.6 % (11.5-14.5); Segmented Neutrophils % 56.9 %
[2016-09-11 06:23] LABS: BUN/Creatinine Ratio 15 (6-26); Blood Urea Nitrogen 9 mg/dL (7-20); Calcium 9.1 mg/dL (8.6-10.8); Carbon Dioxide 27 mEq/L (19-29); Chloride 104 mEq/L (98-109); Glucose 103 mg/dL (70-99); Osmolality,Calculated 285 (280-300); Potassium 3.9 mEq/L (3.5-4.5); Sodium 138 mEq/L (136-145); eGFR For African Americans > 60 (> 60); eGFR For Non-African Americans > 60 (> 60)
[2016-09-11] MEDS ORDERED: D5% in Water 250 ML ONE (08:25)
[2016-09-11] MEDS: levoFLOXacin 250 MG TABLET PO SCH (08:32)
[2016-09-11] MEDS: Lactobacillus 1 EACH CAP.SPRINK PO SCH (08:32)
[2016-09-11] MEDS: Fluconazole 100 MG TABLET PO SCH (08:32)
[2016-09-11] MEDS: levoFLOXacin 500 MG TABLET PO SCH (08:33)
[2016-09-11] MEDS: cloNIDine HCl 0.1 MG TABLET PO SCH ×3 (08:33→20:34)
[2016-09-11] MEDS: Vancomycin 1,000 MG in D5% in Water 250 ML IVPB SCH ×2 (08:34→17:03)
[2016-09-11] MEDS: Ibuprofen 400 MG TABLET PO PRN ×2 (08:52→17:03)
[2016-09-11] MEDS: Ondansetron 4 MG/2 ML VIAL IVP PRN ×2 (08:54→19:23)
--- NOTE | 2016-09-11 15:04 | Internal Med Progress Note ---
Date of Encounter: 09/11/16 Time of Encounter: 15:02 - Assessment and plan (1) Cellulitis of left upper extremity Current Visit: Yes Status: Acute Assessment and plan: Patient has cellulitis on left arm, CAT scan shows no abscess, no septic arthritis. Will continue antibiotic Vanco, Levaquin, Blood culture negative. Repeat CT shows no abscess formation. CT shows myositis, need to watch for compartment syndrome, so far the arm is nontensive, pulse is ok, no signs of FABIOLA or hyperkalemia. No dark urine. Will obtain a venous duplex today. Patient is at high risk because she is on vancomycin, need close monitoring. Possible discharge tomorrow if stable. (2) DVT prophylaxis Current Visit: Yes Status: Acute Assessment and plan: Heparin subcutaneously. (3) Heroin abuse Current Visit: No Status: Acute Assessment and plan: Continue current treatment, patient said she had HIV tests years before, which was negative. asphalt plant worker consult placed. - Time Spent With Patient Greater than 35 minutes - Subjective Interval history: This is my first encounter with the patient. Patient was seen and examined during rounds. She is complaining of pain in the left arm, however states that the redness has decreased, is still feeling swollen. She states that has improved significantly since admission. She denies fever. - Constitutional Vitals: Temp Pulse Resp BP Pulse Ox 97.9 F 64 14 134/91 98 09/11/16 11:04 09/11/16 11:04 09/11/16 11:04 09/11/16 11:04 09/11/16 11:04 General appearance: Present: cooperative, mild distress, A&O X 3, pleasant, answers questions appropriately - Head Head exam: Present: atraumatic, normocephalic - Eye Eye exam: Present: PERRL, conjuntiva pink, sclera anicteric Pupils: Present: PERRL - Neck Neck exam general surgery: Present: supple, trachea midline. Absent: lymphadenopathy - Respiratory Respiratory exam: Present: CTAB. Absent: accessory muscle use, rales, rhonchi, wheezes - Cardiovascular Cardiovascular exam: Present: RRR, +S1, +S2. Absent: diastolic murmur, gallop, rubs, systolic murmur - GI/Abdominal GI/Abdominal exam: Present: normal bowel sounds, soft, no peritoneal signs. Absent: distended, tenderness - Extremities Exam Extremities exam: Present: warm, radial pulses palpable and symetrical. Absent : calf tenderness, cyanotic, pedal edema Additional comments: left arm tenderness and swelling, no redness. distal pulses are preserved in the ipsilateral arm - Neurological Exam Neurological exam: Present: CN II-XII intact, oriented X3, no focal deficits. Absent: pronater drift, facial droop, speech deficit - Skin Skin exam: Present: dry, intact Internal Medicine: Result - Labs CBC & Chem 7: 09/11/16 05:59 09/11/16 05:59 Labs: Short CBC 09/11/16 Range/Units 05:59 WBC 7.1 (4.3-11.1) K/mcL Hgb 11.5 (11.5-15.4) g/dL Hct 35.0 L (35.3-44.9) % Plt Count 197 (140-400) K/mcL Neutrophils # 4.0 (1.6-8.9) K/mcL BMP 09/11/16 05:59 Sodium 138 Potassium 3.9 Chloride 104 Carbon Dioxide 27 BUN 9 Creatinine 0.62 Glucose 103 H Calcium 9.1 Consult Discharge Plan - Plan Referrals: Isela Iniguez MD [Primary Care Provider] - 09/17/16 10:30 am
--- NOTE | 2016-09-11 18:37 | Venous Imaging Report ---
UE Venous Duplex Patient Name:Martha Scott Order Number:[id number] Procedure Date:09/11/2016 Date:1985Age:31 yrs Gender:Female Location:[facility] Room #: 3A12 Lamp Replacer:Luna Ashford RDCS Referring MD:Kory Ruby MD block stacker:Isela Iniguez MD Reading MD:Evaristo Armando MD , FACS Primary Indications:R/O DVT Secondary Indications: Risk Factors Yes/No Anticoagulants Yes Impressions: Left upper extremity: normal superficial and deep exam. Recommendations: Preliminary given to Pt RN at bedside. Test completed on 09/11/2016 at 5:00:00 pm. Findings Venous Duplex Results: Left: Venous imaging of the upper extremity reveals full patency and normal vessel compressibility of the left jugular, left subclavian, left axillary, left brachial, left cephalic, left basilic, left radial and left ulnar. Doppler signals in the evaluated veins were normal. Prior Study: No prior study available for comparison. Upper Extremity Venous Duplex Side Vein Compress Spontaneous Flow Augment Left Jugular Normal Yes Phasic Yes Left Subclavian Normal Yes Phasic Yes Left Axillary Normal Yes Phasic Yes Left Brachial Normal Yes Phasic Yes Left Cephalic Normal Yes Phasic Yes Left Basilic Normal Yes Phasic Yes Left Radial Normal Yes Phasic Yes Left Ulnar Normal Yes Phasic Yes Updated by Evaristo Armando MD, FACS on 09/11/2016 6:30:07 PM Evaristo Armando MD electronically signed on 09/11/2016 6:30:29 PM with status of Final
[2016-09-11] MEDS: Melatonin 3 MG TABLET PO SCH (20:34)
[2016-09-11] MEDS: traZODone 50 MG TABLET PO SCH (22:46)
[2016-09-12] MEDS: Vancomycin 1,000 MG in D5% in Water 250 ML IVPB SCH ×2 (00:10→08:00)
[2016-09-12] MEDS: *HR* HYDROmorphone (PF) 1 MG/ML SYRINGE IVP PRN ×3 (00:10→09:13)
[2016-09-12] MEDS: Ibuprofen 400 MG TABLET PO PRN (01:52)
[2016-09-12] MEDS: *HR* OxyCODONE/APAP 10/325 TABLET PO PRN ×2 (03:10→11:13)
[2016-09-12 05:51] LABS: Eosinophils # 0.3 K/mcL (0.0-0.6); Hematocrit 36.8 % (35.3-44.9); Mean Corpuscular HGB Conc 32.6 g/dL (31.6-35.5); Mean Corpuscular Hemoglobin 29.3 pg (28.0-33.3); Mean Corpuscular Volume 89.8 fL (83.0-100.0); Mean Platelet Volume 10.2 fL (9.4-12.4); Platelet Count 203 K/mcL (140-400); Red Cell Distribution Width 12.3 % (11.5-14.5)
[2016-09-12 06:05] LABS: BUN/Creatinine Ratio 19 (6-26); Blood Urea Nitrogen 12 mg/dL (7-20); Calcium 9.2 mg/dL (8.6-10.8); Carbon Dioxide 29 mEq/L (19-29); Chloride 102 mEq/L (98-109); Glucose 100 mg/dL (70-99); Osmolality,Calculated 290 (280-300); Sodium 140 mEq/L (136-145); eGFR For African Americans > 60 (> 60); eGFR For Non-African Americans > 60 (> 60)
[2016-09-12 06:12] LABS: Lymphocytes # 3.2 K/mcL (0.6-4.6); Monocytes # 0.5 K/mcL (0.0-1.3)
[2016-09-12 06:13] LABS: Platelet Estimate Normal (Normal); Reactive Lymphocytes Present (Not Present)
[2016-09-12] MEDS: Fluconazole 100 MG TABLET PO SCH (08:00)
[2016-09-12] MEDS: levoFLOXacin 250 MG TABLET PO SCH (08:00)
[2016-09-12] MEDS: cloNIDine HCl 0.1 MG TABLET PO SCH (08:00)
[2016-09-12] MEDS: *HR* Heparin 5,000 UNIT/ML VIAL SQ SCH (08:00)
[2016-09-12] MEDS: Lactobacillus 1 EACH CAP.SPRINK PO SCH (08:00)
[2016-09-12] MEDS: levoFLOXacin 500 MG TABLET PO SCH (08:00)
[2016-09-12 09:17] VITALS: BP 119/75
--- NOTE | 2016-09-12 09:59 | Discharge Summary ---
Date of Encounter: 09/12/16 Time of Encounter: 09:57 - Discharge Diagnosis (1) Cellulitis of left upper extremity Priority: Primary Status: Acute (2) DVT prophylaxis Priority: Secondary Status: Acute (3) Heroin abuse Priority: Secondary Status: Acute - Discharge Medications Prescriptions: Levofloxacin [Levaquin] 500 mg PO DAILY #7 tablet Sulfamethoxazole/Trimeth DS [Bactrim DS] 1 each PO BID #14 tablet Tramadol HCl [Ultram] 50 mg PO BID PRN #10 tab PRN Reason: Pain Home Medications: Levofloxacin [Levaquin] 500 mg PO DAILY #7 tablet 09/12/16 [Rx] Sulfamethoxazole/Trimeth DS [Bactrim DS] 1 each PO BID #14 tablet 09/12/16 [Rx] Tramadol HCl [Ultram] 50 mg PO BID PRN #10 tab 09/12/16 [Rx] Allergies/Adverse Reactions: Allergies Amoxicillin Allergy (Intermediate, Verified 08/29/16 03:21) Hives escitalopram [From Lexapro] Allergy (Verified 08/29/16 03:21) Hives Procedures/tests Complete & Pending: Procedures Performed prior 72 hours Category Date Time Status Venous Doppler [EV venous imaging UE LT] Stat Y 09/11/16 11:01 Completed Date of admission: 09/05/16 20:14 Primary care physician: Isela Iniguez MD Consults: 09/06/16 17:13 Consult to Supervisor Sintering [employer] [CONS] Routine Reason for SW Consult: IV drug abuse, detox option Discharging clinician: Kory Ruby Anticipated date of discharge: 09/12/16 - Patient Status Disposition: Transfer Inpatient Rehab Fac Condition: Fair Functional capacity at discharge: independent ambulation Overall status at discharge: patient is progressing back to baseline - Discharge Instructions Follow Up With: Isela Iniguez MD [Primary Care Provider] - 09/17/16 10:30 am - Diet and Activity Activity: increase activity as tolerated Diet: advance to your usual diet Interval History: Ms. Scott is a 31 year old female who presented to the ER this evening after being referred there by the urgent care. She presented to urgent care initially today with complaints of left arm pain and swelling, fever, chills, body aches, and limited range of motion of her left arm. She uses IV drugs regularly and likely developed cellulitis and abscess secondary to infection of her injection site. Upon initial assessment in the urgent care, she was immediately referred to the ER. In the ER, she had workup including labs, blood work, and EKG. Along with her clinical exam findings, she appeared to have evidence of cellulitis and likely early sepsis. Blood cultures were drawn and she was started on IV vancomycin. She was subsequently admitted to the hospitalist service. Upon my assessment of the patient, she is alert, oriented, and very compliant with the history and exam. She has obvious pain, inflammation, and limited range of motion in her left antecubital fossa/left arm. She is tachycardic and febrile. Otherwise, she is in no acute distress. She has been using prescription drugs, street drugs, and IV drugs since 2008. She was clean from December to May this past year and then relapsed in late May,. She last used some heroin earlier today. She states that the pain, swelling, fevers , chills, and range of motion limitation all started in the last 24 hours. She denies any chest pain, shortness of breath, vomiting, or diarrhea. She has never had infection and/or abscess from the injection site. She admits to having hepatitis C secondary to IV drug abuse. She denies any hepatitis B or HIV. She does admit to having history of hypertension but has not been treated. She also uses crack cocaine infrequently, which does not help her hypertension. Hospital course: Ms. Scott is a 31 year old female Patient has cellulitis on left arm, CAT scan shows no abscess, no septic arthritis. No evidence of endocarditis. Recevied iv Vanco and Levaquin while inpatient (completed 7 days while in the [facility]) Blood culture negative. Repeat CT shows no abscess formation. CT shows myositis, pulse is ok, no signs of FABIOLA or hyperkalemia. No dark urine. Afebrile since admission, no leukocytosis, doing much better compared to admission. Venous duplex was negative for DVT. The patient will be discharged today on po bactrim and levaquin for additional 7 days. She will go to [facility], health and social care teacher on the case. D/W patient, agrees with plan. - Time Spent with Patient Total time spent providing and/or coordinating discharge services: Greater than 30 minutes - Constitutional Vitals: Temp Pulse Resp BP Pulse Ox 98.4 F 69 17 119/75 100 09/12/16 08:26 09/12/16 08:26 09/12/16 08:26 09/12/16 09:16 09/12/16 08:26 General appearance: Present: cooperative, mild distress, A&O X 3, pleasant, answers questions appropriately - Head Head exam: Present: atraumatic, normocephalic - Eye Eye exam: Present: PERRL, conjuntiva pink, sclera anicteric Pupils: Present: PERRL - Neck Neck exam general surgery: Present: supple, trachea midline. Absent: lymphadenopathy - Respiratory Respiratory exam: Present: CTAB. Absent: accessory muscle use, rales, rhonchi, wheezes - Cardiovascular Cardiovascular exam: Present: RRR, +S1, +S2. Absent: diastolic murmur, gallop, rubs, systolic murmur - GI/Abdominal GI/Abdominal exam: Present: normal bowel sounds, soft, no peritoneal signs. Absent: distended, tenderness - Extremities Exam Extremities exam: Present: warm, radial pulses palpable and symetrical. Absent : calf tenderness, cyanotic, pedal edema Additional comments: left arm with mild swelling , no erythema noted, distal pulses ok. - Neurological Exam Neurological exam: Present: CN II-XII intact, oriented X3, no focal deficits. Absent: pronater drift, facial droop, speech deficit - Skin Skin exam: Present: dry, intact
[2016-09-12] MEDS ORDERED: Aminoglycoside Consult 1 EACH MC ONE (11:44)
== END 2016-09-12 11:45 | DRG 720 ==
LOC: 3ANU 15:30 → EMEROO 15:30 → SUATTDRO 20:14 → 3ANU 20:27
PROVIDERS: ADMIT Internal Medicine; ATTEND Internal Medicine

== ENCOUNTER 2017-07-16 17:21 | Observation (INO) ==
--- NOTE | 2017-07-16 17:32 | Emergency Department Note ---
Disposition Clinical Impression: Cocaine intoxication Qualifiers: Complication of substance-induced condition: with unspecified complication Qualified Code(s): F14.929 - Cocaine use, unspecified with intoxication, unspecified Chest pain Qualifiers: Chest pain type: unspecified Qualified Code(s): R07.9 - Chest pain, unspecified Disposition: Admitted As Inpatient Condition: Good Time of Disposition: 20:14 General Adult HPI - General Chief complaint: ED Overdose Stated complaint: overdose Time Seen by Provider: 07/16/17 17:24 Source: patient, EMS Mode of arrival: EMS Limitations: no limitations Nursing Notes Reviewed: Yes Vital Signs Reviewed: Yes - History of Present Illness HPI Narrative: 30-year-old female history of atrial fibrillation, hypertension, pack per day smoker presents to the ED via EMS for chest pain and shortness of breath. She admits to using heroin and cocaine earlier this morning. Does admit to the drug use intermittently throughout the day. About an hour prior to arrival, around 1630 patient reports experiencing a squeezing chest pain sensation as well as abdominal pain. It has been constant. Also describes muscle aches. Denies any fever, cough or recent illness. She has noticed some swelling to extremities, took a dose of Lasix that was not prescribed to her. She denies any shortness of breath or diaphoresis. She denies any history of cardiac ischemic disease. Denies any shortness of breath. She has never experienced anything like this before. Denies any suicidal or homicidal ideation. Denies any intentional overdose. Pain Scale: 5 - Related Data Home Medications Medication Instructions Recorded Confirmed ARIPiprazole [Abilify] 5 mg PO DAILY 07/16/17 07/16/17 Buprenorphine HCl/Naloxone HCl 2 tab SL DAILY 07/16/17 07/16/17 [Suboxone 8 mg-2 mg Sl Film] CarBAMazepine [Carbamazepine ER] 200 mg PO BID 07/16/17 07/16/17 Fluticasone Propionate Nasal 1 spray NS DAILY 07/16/17 07/16/17 [Flonase] Loratadine [Allergy Relief] 10 mg PO DAILY 07/16/17 07/16/17 Ondansetron HCl [Zofran] 4 mg PO TID PRN 07/16/17 07/16/17 Allergies Allergy/AdvReac Type Severity Reaction Status Date / Time Amoxicillin Allergy Intermediate Hives Verified 07/16/17 19:06 escitalopram [From Lexapro] Allergy Hives Verified 07/16/17 19:06 All systems ED: reviewed and negative except as stated. Review of Systems: As Per HPI Constitutional: Denies: fever, chills ENT ED: Denies: congestion, dysphagia Cardiovascular: Reports: chest pain. Denies: palpitations, dyspnea on exertion Respiratory: Denies: cough, dyspnea Gastrointestinal: Reports: abdominal pain, nausea. Denies: vomiting Genitourinary: Denies: urgency, dysuria Musculoskeletal: Denies: back pain, neck pain Integumentary: Denies: rash, abrasion Neurological: Denies: headache, vertigo Psychiatric: Denies: anxiety, depression, suicidal thoughts, homicidal thoughts Past Medical History - Past Medical History Attestation: Yes The following information was validated with the patient. Source: patient Medical history: Reports: atrial fibrillation, hepatitis, hypertension, migraine , other Surgical history: Reports: Psychiatric history: Reports: anxiety, bipolar, depression RN EMERGENCY ROOM history: Reports: bilateral tubal ligation - Social History Smoking Status: Current every day smoker Smokeless Tobacco Status: No Alcohol use: Reports: none Drug use: Reports: cocaine, opiates, IV Drug Use, prescription drug abuse Physical Exam - General Limitations: no limitations General appearance: alert, anxious - Head Head exam: atraumatic, normocephalic, normal inspection - Eye Eye exam: Present: normal appearance, PERRL, EOMI - ENT ENT exam: normal exam, normal oropharynx, mucous membranes moist - Neck Neck exam: Present: normal inspection, full ROM, trachea midline - Chest Chest inspection: Present: normal inspection, symmetric chest wall rise. Absent : tenderness - Respiratory Respiratory exam: Present: normal lung sounds bilaterally - Cardiovascular Cardiovascular exam: Present: normal rhythm, tachycardia, normal heart sounds. Absent: systolic murmur, diastolic murmur - Abdominal Exam Abdominal exam: Present: soft, Non-Tender, normal bowel sounds. Absent: tenderness, distention, guarding, rebound, rigidity - Extremities Exam Extremities exam: Present: normal inspection, full ROM, normal capillary refill. Absent: tenderness, pedal edema, calf tenderness - Back Exam Back exam: Present: normal inspection, full ROM. Absent: tenderness - Neurological Exam Neurological exam: Present: alert, oriented X3, CN II-XII intact, normal gait - Expanded Neurological Exam Patient oriented to: Present: person, place, time Speech: Present: fluid speech Cranial nerves: EOM function (II, III, IV, ): Normal, facial sensation (V): Normal, facial palsy (VII): Normal, gag reflex (IX): Normal, spinal accessory function (XI): Normal, tongue deviation (XII): Normal Motor strength - LUE: 5/5 Motor strength - RUE: 5/5 Motor strength - LLE: 5/5 Motor strength - RLE: 5/5 Upper motor neuron exam: [place] neglect: Absent bilaterally Sensory exam upper extremity: light touch: Normal Sensory exam lower extremity: light touch: Normal - Psychiatric Psychiatric exam: Present: agitated, anxious. Absent: homicidal ideation, suicidal ideation - Skin Skin exam: Present: warm, dry, intact, normal color. Absent: cyanosis, diaphoresis Course Course Narrative: 32 -year-old female history of hypertension presents to the ED via EMS for chest pain and recent cocaine use. Symptoms started one hour prior to arrival. She openly admits to heroin and cocaine use. Denies any suicidal or homicidal ideation. Describes the pain as a squeezing sensation in her chest area denies any cardiac ischemic disease. She admits to smoking. On physical exam she appears very agitated. She is tachycardic 120. Exam is otherwise unremarkable. Concern for possible cocaine vasospasm to milligrams IV Ativan order. Will reassess and may require admission for observation. Patient is in agreement with this plan. - Reevaluation(s) Reevaluation #1: Urine drug screen shows positive opiate and cocaine which is consistent with her history. She is slightly hypokalemic. EKG shows sinus tachycardia no ST elevations or depressions. No changes. Patients in agreement with plan for admission and observation. She is complaining of some nausea and has been treated with Reglan Benadryl. Impression is chest pain possible vasospasm secondary to cocaine use. - Consultations Consultation #1: Spoke with on-call hospitalist karlie Washington to admit for cocaine use, chest pain possible vasospasm. No further orders at this time EKG is unremarkable for ST elevation or ischemic changes. Time: 19:00 Vital Signs Temperature 99.6 F 07/16/17 17:23 Pulse Rate 125 07/16/17 17:23 Respiratory Rate 20 07/16/17 17:23 Blood Pressure 159/101 07/16/17 17:23 O2 Sat by Pulse Oximetry 98 07/16/17 17:23 Temperature 99.6 F 07/16/17 17:23 Pulse Rate 117 07/16/17 19:32 Respiratory Rate 16 07/16/17 20:13 Blood Pressure 108/81 07/16/17 20:13 O2 Sat by Pulse Oximetry 97 07/16/17 19:32 Oxygen Delivery Oxygen Delivery Room Air Medical Decision Making - MDM Narrative Medical decision making narrative: Patient's case was discussed with my attending physician agrees with their ED management and final disposition. They independently evaluated patient. Please refer to their attestation to this encounter for additional information. This note was generated by [employer] voice recognition software and as result grammatical or spelling errors may occur using this program. - Medical Records Medical records reviewed: Yes I reviewed the patient's medical records. - Lab Data Lab results reviewed: Yes I reviewed the patient's lab results. Result diagrams: 07/16/17 18:11 07/16/17 18:11 Lab Results 07/16/17 07/16/17 07/16/17 Range/Units 18:10 18:11 18:11 WBC 2.7 L (4.3-11.1) K/mcL RBC 4.39 (3.82-4.97) M/mcL Hgb 13.5 (11.5-15.4) g/dL Hct 39.5 (35.3-44.9) % MCV 90.0 (83.0-100.0) fL MCH 30.8 (28.0-33.3) pg MCHC 34.2 (31.6-35.5) g/dL RDW 12.3 (11.5-14.5) % Plt Count 160 (140-400) K/mcL MPV 10.1 (9.4-12.4) fL Immature Gran % 4.9 H (0-4) % Seg Neutrophils % 84.6 % Lymphocytes % 9.4 % Monocytes % 0.7 % Eosinophils % 0.0 % Basophils % 0.4 % Neutrophils # 2.3 (1.6-8.9) K/mcL Lymphocytes # 0.3 L (0.6-4.6) K/mcL Monocytes # 0.0 (0.0-1.3) K/mcL Eosinophils # 0.0 (0.0-0.6) K/mcL Basophils # 0.0 (0.0-0.2) K/mcL Nucleated RBCs/100 WBC 1.1 H (0) /100 WBC Polychromasia 1+ A (Not Present) Sodium 139 (136-145) mEq/L Potassium 3.1 L (3.5-4.5) mEq/L Chloride 104 (98-109) mEq/L Carbon Dioxide 24 (19-29) mEq/L BUN 8 (7-20) mg/dL Creatinine 0.82 (0.57-1.11) mg/dL Est GFR ( Amer) > 60 (> 60) Est GFR (Non-Af Amer) > 60 (> 60) BUN/Creatinine Ratio 10 (6-26) Glucose 97 (70-99) mg/dL Calculated Osmolality 286 (280-300) Calcium 9.5 (8.6-10.8) mg/dL Total Bilirubin 0.7 (0.2-1.2) mg/dL Direct Bilirubin 0.4 (0.0-0.5) mg/dL Indirect Bilirubin 0.3 (0.0-1.2) mg/dL AST 73 H (5-34) Units/L ALT 47 (0-55) Units/L Alkaline Phosphatase 100 (38-126) Units/L Troponin I 0.00 (0-0.03) ng/mL Serum Total Protein 7.3 (6.0-8.3) g/dL Albumin 3.7 (3.5-5.0) g/dL Globulin 3.6 H (2.4-3.5) g/dL Albumin/Globulin Ratio 1.0 L (1.1-2.2) Urine Color (Yellow) Urine Clarity (Clear) Urine pH (5.0-8.0) pH Units Ur Specific [place] (1.010-1.025) Urine Protein (Neg-Trace) mg/dL Urine Glucose (UA) (Normal) mg/dL Urine Ketones (Negative) mg/dL Urine Blood (Negative) Urine Nitrite (Negative) Urine Bilirubin (Negative) Urine Urobilinogen (Normal) mg/dL Ur Leukocyte Esterase (Negative) Urine Microscopic RBC (0-3) per hpf Urine Microscopic WBC (0-3) per hpf Ur Squamous Epith Cells (None-Few) per lpf Urine Bacteria (None-Few) per hpf Hyaline Casts (None-Few) per lpf Ur Culture Indicated? (NO) Urine Opiates Screen (Gkhgal=836) ng/mL Ur Barbiturates Screen (Gmoxlo=102) ng/mL Ur Phencyclidine Scrn (Cutoff=25) ng/mL Ur Amphetamines Screen (Gqsvko=1123) ng/mL U Benzodiazepines Scrn (Wgmrci=462) ng/mL Urine Cocaine Screen (Cutoff= 300) ng/mL U Marijuana (THC) Screen (Cutoff = 50) ng/mL 07/16/17 07/16/17 Range/Units 18:15 18:15 WBC (4.3-11.1) K/mcL RBC (3.82-4.97) M/mcL Hgb (11.5-15.4) g/dL Hct (35.3-44.9) % MCV (83.0-100.0) fL MCH (28.0-33.3) pg MCHC (31.6-35.5) g/dL RDW (11.5-14.5) % Plt Count (140-400) K/mcL MPV (9.4-12.4) fL Immature Gran % (0-4) % Seg Neutrophils % % Lymphocytes % % Monocytes % % Eosinophils % % Basophils % % Neutrophils # (1.6-8.9) K/mcL Lymphocytes # (0.6-4.6) K/mcL Monocytes # (0.0-1.3) K/mcL Eosinophils # (0.0-0.6) K/mcL Basophils # (0.0-0.2) K/mcL Nucleated RBCs/100 WBC (0) /100 WBC Polychromasia (Not Present) Sodium (136-145) mEq/L Potassium (3.5-4.5) mEq/L Chloride (98-109) mEq/L Carbon Dioxide (19-29) mEq/L BUN (7-20) mg/dL Creatinine (0.57-1.11) mg/dL Est GFR ( Amer) (> 60) Est GFR (Non-Af Amer) (> 60) BUN/Creatinine Ratio (6-26) Glucose (70-99) mg/dL Calculated Osmolality (280-300) Calcium (8.6-10.8) mg/dL Total Bilirubin (0.2-1.2) mg/dL Direct Bilirubin (0.0-0.5) mg/dL Indirect Bilirubin (0.0-1.2) mg/dL AST (5-34) Units/L ALT (0-55) Units/L Alkaline Phosphatase (38-126) Units/L Troponin I (0-0.03) ng/mL Serum Total Protein (6.0-8.3) g/dL Albumin (3.5-5.0) g/dL Globulin (2.4-3.5) g/dL Albumin/Globulin Ratio (1.1-2.2) Urine Color Yellow (Yellow) Urine Clarity Clear (Clear) Urine pH 6.0 (5.0-8.0) pH Units Ur Specific [place] 1.014 (1.010-1.025) Urine Protein Negative (Neg-Trace) mg/dL Urine Glucose (UA) Normal (Normal) mg/dL Urine Ketones Negative (Negative) mg/dL Urine Blood Trace H (Negative) Urine Nitrite Negative (Negative) Urine Bilirubin Negative (Negative) Urine Urobilinogen Normal (Normal) mg/dL Ur Leukocyte Esterase Negative (Negative) Urine Microscopic RBC 0-3 (0-3) per hpf Urine Microscopic WBC 0-3 (0-3) per hpf Ur Squamous Epith Cells Many H (None-Few) per lpf Urine Bacteria None Seen (None-Few) per hpf Hyaline Casts None Seen (None-Few) per lpf Ur Culture Indicated? NO (NO) Urine Opiates Screen Positive H (Iuauzm=481) ng/mL Ur Barbiturates Screen Negative (Ppytzw=911) ng/mL Ur Phencyclidine Scrn Negative (Cutoff=25) ng/mL Ur Amphetamines Screen Negative (Lojzps=1323) ng/mL U Benzodiazepines Scrn Negative (Hoccxr=904) ng/mL Urine Cocaine Screen Positive H (Cutoff= 300) ng/mL U Marijuana (THC) Screen Negative (Cutoff = 50) ng/mL - Radiology Data Radiology results reviewed: Yes I reviewed the patient's radiology results. Chest X-Ray 07/16/17 17:24 IMPRESSION: Unremarkable chest. D/ / 07/16/2017 17:46:50 Ozzy Rosas MD / [facility] Interpreting Provider: Ozzy Rosas MD - EKG Data EKG #1 EKG attestation: Yes I reviewed and interpreted this EKG. EKG results narrative: EKG performed 1729 sinus tachycardia 1 16 bpm, normal axis, no ST elevations or depression, no T wave inversion, there are some nonspecific T wave changes , intervals are within normal limits. Compared to old EKG performed 09/05/2016 shows sinus tachycardia 10 6 bpm with no acute abnormalities. No acute ischemic changes. Attestation Statement - Attestation Attestation: I, Ashwin Meeks, examined this patient and my medical decision-making was reviewed with the [employer] WORKER/PA/Advanced Practice Nurse/Resident Physician. I agree with the documented findings, disposition and treatment plan as described except to the extent set forth below. 30-year-old female presents emergency Department with concerns of acute onset chest pain. Patient has been using heroin and crack cocaine throughout the day today. Patient's heart rate was greater than 140 during my evaluation. Patient is alert to place and date and current events however she does not seem to possess very good decision-making skills at this time. Patient will be admitted to the hospital for further care and evaluation of her chest pain to rule out ACS secondary to coronary artery vasospasm secondary to cocaine use.
[2017-07-16 18:22] LABS: Hematocrit 39.5 % (35.3-44.9); Hemoglobin 13.5 g/dL (11.5-15.4); Mean Corpuscular HGB Conc 34.2 g/dL (31.6-35.5); Mean Corpuscular Hemoglobin 30.8 pg (28.0-33.3); Mean Platelet Volume 10.1 fL (9.4-12.4); Platelet Count 160 K/mcL (140-400); Red Blood Count 4.39 M/mcL (3.82-4.97); Red Cell Distribution Width 12.3 % (11.5-14.5); Segmented Neutrophils % 84.6 %
[2017-07-16 18:23] LABS: Basophils % 0.4 %; Immature Granulocytes % 4.9 % (0-4); Lymphocytes # 0.3 K/mcL (0.6-4.6); Lymphocytes % 9.4 %; Monocytes % 0.7 %; Neutrophils # 2.3 K/mcL (1.6-8.9); Nucleated Red Blood Cells 1.1 /100 WBC (0)
[2017-07-16 18:30] LABS: Bilirubin,Urine Negative (Negative); Blood,Urine Trace (Negative); Clarity,Urine Clear (Clear); Color,Urine Yellow (Yellow); Glucose,Urine (UA) Normal (Normal); Ketones,Urine Negative (Negative); Leukocyte Esterase,Urine Negative (Negative); Nitrite,Urine Negative (Negative); Protein,Urine Negative (Neg-Trace); Specific Gravity,Urine 1.014 (1.010-1.025); Urobilinogen,Urine Normal (Normal)
[2017-07-16 18:36] LABS: Amphetamine Screen,Urine Negative ng/mL (Cutoff=1000); Barbiturate Screen,Urine Negative ng/mL (Cutoff=200); Benzodiazepines Screen,Urine Negative ng/mL (Cutoff=200); Cannabinoid Screen,Urine Negative ng/mL (Cutoff = 50); Cocaine Screen,Urine Positive ng/mL (Cutoff= 300); Opiate Screen,Urine Positive ng/mL (Cutoff=300); Phencyclidine Screen,Urine Negative ng/mL (Cutoff=25)
[2017-07-16 18:38] LABS: Alanine Aminotransferase 47 Units/L (0-55); Albumin 3.7 g/dL (3.5-5.0); Alkaline Phosphatase 100 Units/L (38-126); Aspartate Amino Transferase 73 Units/L (5-34); BUN/Creatinine Ratio 10 (6-26); Bilirubin,Direct 0.4 mg/dL (0.0-0.5); Bilirubin,Indirect 0.3 mg/dL (0.0-1.2); Bilirubin,Total 0.7 mg/dL (0.2-1.2); Blood Urea Nitrogen 8 mg/dL (7-20); Calcium 9.5 mg/dL (8.6-10.8); Carbon Dioxide 24 mEq/L (19-29); Chloride 104 mEq/L (98-109); Globulin 3.6 g/dL (2.4-3.5); Glucose 97 mg/dL (70-99); Osmolality,Calculated 286 (280-300); Potassium 3.1 mEq/L (3.5-4.5); Sodium 139 mEq/L (136-145); Total Protein 7.3 g/dL (6.0-8.3); eGFR For African Americans > 60 (> 60); eGFR For Non-African Americans > 60 (> 60)
[2017-07-16 18:41] LABS: Bacteria,Urine None Seen per hpf (None-Few); Hyaline Casts,Urine None Seen per lpf (None-Few); RBC,Urine 0-3 per hpf (0-3); Squamous Epithelial Cell,Urine Many per lpf (None-Few); WBC,Urine 0-3 per hpf (0-3)
[2017-07-16] MEDS ORDERED: *HR* LORazepam 2 MG/ML VIAL IVP ONE (18:45)
[2017-07-16] MEDS ORDERED: Metoclopramide 10 MG/2 ML VIAL IVP ONE (18:45)
[2017-07-16 18:47] LABS: Polychromasia 1+ (Not Present)
--- NOTE | 2017-07-16 20:13 | Internal Med History&Physical ---
Date of Encounter: 07/16/17 Time of Encounter: 20:09 Assessment and Plan (1) Chest pain Current visit: Yes Status: Acute Cocaine induced chest pain and tachycardia. Reportedly according to ED physician there was no ST segment elevation. EKG is not available so will repeat 12 lead EKG. she is tachycardic, will start the patient on ativan nitrates and calcium channel blockers. Serial cardiac markers.. Telemetry monitoring. Patient denies any suicidal ideations. Qualifiers: Qualified Code(s): R07.9 - Chest pain, unspecified Internal Medicine - H&P: HPI Chief complaint: chest pain History of present illness: Ms. Scott is a 32 year old female with history of paroxysmal atrial ablation not on anticoagulants, hypertension, presented emergency room today with them in complaining of chest pain. Patient has been using cocaine since this morning. She has been experiencing intermittent retrosternal chest pain radiating to the neck. She also has palpitations which he describes as rapid regular. She denies any suicidal or homicidal ideations. She denies any intentional overdose. Past Med Surg Social Fam HX - Past Medical History Medical history: atrial fibrillation, hepatitis, hypertension, migraine, other Psychiatric history: anxiety, bipolar, depression - Past Surgical History Surgical History: - Social History Smoking Status: Current every day smoker Smokeless Tobacco Status: No Alcohol use: none Drug use: cocaine, opiates, IV Drug Use, prescription drug abuse - Family History Mother Living Status: Still Living Hx Family Endocrine Disorder: (DM) Father Living Status: Internal Medicine - H&P: Meds ARIPiprazole [Abilify] 5 mg PO DAILY 07/16/17 [History] Buprenorphine HCl/Naloxone HCl [Suboxone 8 mg-2 mg Sl Film] 2 tab SL DAILY 07/16 [History] CarBAMazepine [Carbamazepine ER] 200 mg PO BID 07/16/17 [History] Fluticasone Propionate Nasal [Flonase] 1 spray NS DAILY 07/16/17 [History] Loratadine [Allergy Relief] 10 mg PO DAILY 07/16/17 [History] Ondansetron HCl [Zofran] 4 mg PO TID PRN 07/16/17 [History] 3 Allergy/AdvReac Type Severity Reaction Status Date / Time Amoxicillin Allergy Intermediate Hives Verified 07/16/17 19:06 escitalopram [From Lexapro] Allergy Hives Verified 07/16/17 19:06 All Systems PM: A 10-system review of systems was performed and is negative for pertinent findings except as documented above in the HPI. Review of systems: 10 point rview of systems is negative except for HPI - Constitutional Vitals: Temp Pulse Resp BP Pulse Ox 99.6 F 117 16 130/73 97 07/16/17 17:23 07/16/17 19:32 07/16/17 19:32 07/16/17 19:32 07/16/17 19:32 Exam: Gen.: patient is alert oriented times 3 cardiac: normal S1 S2, tachycardic chest: no active wheezing or bronchial breathing abdomen soft nontender nondistended normal bowel sounds lower extremity no swelling. Neuro: no new focal deficits Internal Med - H&P Results - Labs CBC & Chem 7: 07/16/17 18:11 07/16/17 18:11
[2017-07-16] MEDS ORDERED: 0.9 % Sodium Chloride 1,000 ML IVC ONE (21:24)
[2017-07-16] MEDS: Acetaminophen 650 MG RECTAL SUPP RC ONE ×2 (22:04→22:10)
[2017-07-16] MEDS ORDERED: Acetaminophen IV 1,000 MG/100 ML INFUS..BTL IVPB ONE (22:12)
[2017-07-16] MEDS: CarBAMazepine XR (12 hr) 100 MG TAB PO SCH (22:13)
[2017-07-16] MEDS: Aspirin 81 MG TAB.CHEW PO SCH (22:13)
[2017-07-16] MEDS: *HR* Heparin 5,000 UNIT/ML VIAL SQ SCH (22:14)
[2017-07-16 22:37] LABS: Potassium 2.9 mEq/L (3.5-4.5)
[2017-07-16] MEDS: 0.9 % Sodium Chloride 1,000 ML IVC SCH (23:02)
[2017-07-17] MEDS ORDERED: 0.9 % Sodium Chloride 1,000 ML IVC ONE (00:29)
[2017-07-17] MEDS: *HR* Heparin 5,000 UNIT/ML VIAL SQ SCH ×3 (04:24→22:01)
[2017-07-17 07:22] LABS: Magnesium 1.7 mg/dL (1.6-2.6)
--- NOTE | 2017-07-17 08:21 | Electrocardiograph Report ---
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
--- NOTE | 2017-07-17 08:21 | Electrocardiograph Report ---
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
[2017-07-17] MEDS: CarBAMazepine XR (12 hr) 100 MG TAB PO SCH ×2 (09:43→20:06)
[2017-07-17] MEDS: Acetaminophen 325 MG TABLET PO PRN ×2 (09:43→20:06)
[2017-07-17] MEDS: Aspirin 81 MG TAB.CHEW PO SCH (09:44)
[2017-07-17] MEDS: ARIPiprazole 5 MG TABLET PO SCH (09:44)
[2017-07-17] MEDS: 0.9 % Sodium Chloride 1,000 ML IVC SCH (09:44)
[2017-07-17] MEDS: (Buprenorphine Hcl/Naloxone Hcl [Suboxone 8 Mg-2 Mg S) SL SCH (09:46)
[2017-07-17] MEDS: Fluticasone Propionate Nasal 50 MCG/SPRAY BOTTLE NS SCH (09:49)
[2017-07-17] MEDS: *HR* LORazepam 2 MG/ML VIAL IVP PRN ×3 (13:59→21:59)
[2017-07-17 14:41] LABS: Mean Corpuscular HGB Conc 35.5 g/dL (31.6-35.5); Mean Corpuscular Volume 87.3 fL (83.0-100.0); Mean Platelet Volume 10.4 fL (9.4-12.4); Platelet Count 127 K/mcL (140-400); Red Blood Count 3.55 M/mcL (3.82-4.97)
[2017-07-17 14:42] LABS: BUN/Creatinine Ratio 14 (6-26); Blood Urea Nitrogen 10 mg/dL (7-20); Calcium 8.2 mg/dL (8.6-10.8); Carbon Dioxide 22 mEq/L (19-29); Chloride 111 mEq/L (98-109); Glucose 149 mg/dL (70-99); Osmolality,Calculated 292 (280-300); Potassium 3.4 mEq/L (3.5-4.5); Sodium 140 mEq/L (136-145); eGFR For African Americans > 60 (> 60); eGFR For Non-African Americans > 60 (> 60)
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
[2017-07-17 15:24] LABS: Creatine Kinase 362 Units/L (29-168)
[2017-07-17] MEDS: cefTRIAXone 1,000 MG in Water for inj. (sterile) 10 ML IVP SCH (17:24)
[2017-07-17] MEDS: Azithromycin 500 MG in D5% in Water 250 ML IVPB SCH (17:24)
[2017-07-17] MEDS ORDERED: *HR* LORazepam 2 MG/ML VIAL IVP ONE (20:20)
[2017-07-17] MEDS ORDERED: Water for inj. (sterile) 10 ML IV ONE (20:41)
[2017-07-17] MEDS: Ondansetron 4 MG/2 ML VIAL IVP PRN (20:43)
[2017-07-17] MEDS: Melatonin 3 MG TABLET PO PRN (21:58)
[2017-07-18] MEDS: 0.9 % Sodium Chloride 1,000 ML IVC SCH ×3 (00:44→11:59)
[2017-07-18] MEDS: *HR* LORazepam 2 MG/ML VIAL IVP PRN ×2 (02:07→06:03)
[2017-07-18 04:56] LABS: BUN/Creatinine Ratio 15 (6-26); Blood Urea Nitrogen 11 mg/dL (7-20); Calcium 8.7 mg/dL (8.6-10.8); Carbon Dioxide 21 mEq/L (19-29); Chloride 113 mEq/L (98-109); Glucose 129 mg/dL (70-99); Osmolality,Calculated 289 (280-300); Sodium 139 mEq/L (136-145); eGFR For African Americans > 60 (> 60); eGFR For Non-African Americans > 60 (> 60)
[2017-07-18] MEDS: Ondansetron 4 MG/2 ML VIAL IVP PRN (04:56)
[2017-07-18 04:57] LABS: Hematocrit 32.4 % (35.3-44.9); Hemoglobin 10.9 g/dL (11.5-15.4); Mean Corpuscular HGB Conc 33.6 g/dL (31.6-35.5); Mean Corpuscular Hemoglobin 30.9 pg (28.0-33.3); Mean Corpuscular Volume 91.8 fL (83.0-100.0); Mean Platelet Volume 11.2 fL (9.4-12.4); Platelet Count 116 K/mcL (140-400); Red Blood Count 3.53 M/mcL (3.82-4.97); Red Cell Distribution Width 12.6 % (11.5-14.5)
[2017-07-18 05:14] LABS: Potassium 4.1 mEq/L (3.5-4.5)
[2017-07-18] MEDS ORDERED: Ibuprofen 400 MG TABLET PO ONE (05:14)
[2017-07-18] MEDS: *HR* Heparin 5,000 UNIT/ML VIAL SQ SCH ×3 (05:25→21:02)
[2017-07-18] MEDS ORDERED: Water for inj. (sterile) 10 ML IV ONE (05:58)
[2017-07-18] MEDS: Aspirin 81 MG TAB.CHEW PO SCH (08:31)
[2017-07-18] MEDS: ARIPiprazole 5 MG TABLET PO SCH (08:31)
[2017-07-18] MEDS: CarBAMazepine XR (12 hr) 100 MG TAB PO SCH ×2 (08:31→21:00)
[2017-07-18] MEDS: Fluticasone Propionate Nasal 50 MCG/SPRAY BOTTLE NS SCH (08:31)
[2017-07-18] MEDS: Acetaminophen 325 MG TABLET PO PRN ×2 (08:31→15:27)
[2017-07-18] MEDS: cefTRIAXone 1,000 MG in Water for inj. (sterile) 10 ML IVP SCH (08:31)
[2017-07-18] MEDS: (Buprenorphine Hcl/Naloxone Hcl [Suboxone 8 Mg-2 Mg S) SL SCH (08:41)
--- NOTE | 2017-07-18 11:33 | Internal Med Progress Note ---
Date of Encounter: 07/18/17 Time of Encounter: 11:30 - Assessment and plan (1) Polysubstance abuse Current Visit: Yes Status: Acute Assessment and plan: Has known history of opiate abuse. On Suboxone at home. Urine drug screen positive for opiates and cocaine. Cessation advised. [facility] verified on 2016 and she does have active rx for Suboxone. Discussed with Pharmacy and can continue Subutex inpatient. (2) Chest pain Current Visit: Yes Status: Acute Assessment and plan: Reports an episode of chest pain that occurred after ingesting cocaine. Serial troponin negative, EKG without acute ST changes. Suspect chest pain secondary to cocaine use. Cessation advised. Continue to monitor on telemetry. Qualifiers: Qualified Code(s): R07.9 - Chest pain, unspecified (3) Hypokalemia Current Visit: Yes Status: Acute Assessment and plan: K 2.9. Replace. Repeat K normalized (4) Depression Current Visit: Yes Status: Acute Assessment and plan: Per history. Continue home meds stabilizers, depression medication regimen. Qualifiers: Depression Type: major depressive disorder Major depression recurrence: recurrent Active/Remission status: currently active Major depression episode severity: moderate Qualified Code(s): F33.1 - Major depressive disorder, recurrent, moderate (5) SIRS (systemic inflammatory response syndrome) Current Visit: Yes Status: Acute Assessment and plan: WBC 13 K, temp 103. Lactic acid normal. Source unknown at this time. Patient reports productive cough at times, CXR unremarkable. Repeat CXR, UA. Start azithromycin for suspected bronchitis. Now with 4 loose stools on 07/18. Check stool for c. diff - Subjective Interval history: Seen and examined at bedside. Says she is in withdrawal and is sick. Reports multiple loose stools, diffuse body aches, excessive yawning. Discussed case with social service worker, RN and pharmacy. Can resume home Suboxone as Subutex inpatient. - Constitutional Vitals: Temp Pulse Resp BP Pulse Ox 98.7 F 73 15 146/90 96 07/18/17 07:17 07/18/17 07:17 07/18/17 07:17 07/18/17 07:17 07/18/17 07:17 General appearance: Present: A&O X 3, no acute distress - Head Head exam: Present: atraumatic, normocephalic - Eye Eye exam: Present: PERRL, conjuntiva pink, sclera anicteric Pupils: Present: PERRL - Neck Neck exam general surgery: Present: supple, trachea midline. Absent: lymphadenopathy - Respiratory Respiratory exam: Present: CTAB. Absent: accessory muscle use, rales, rhonchi, wheezes - Cardiovascular Cardiovascular exam: Present: RRR, +S1, +S2. Absent: diastolic murmur, gallop, rubs, systolic murmur - GI/Abdominal GI/Abdominal exam: Present: normal bowel sounds, soft, no peritoneal signs. Absent: distended, tenderness - Extremities Exam Extremities exam: Present: warm, radial pulses palpable and symmetrical. Absent : calf tenderness, cyanotic, pedal edema - Neurological Exam Neurological exam: Present: CN II-XII intact, oriented X3, no focal deficits. Absent: pronater drift, facial droop, speech deficit - Skin Skin exam: Present: dry, intact Internal Medicine: Result - Labs CBC & Chem 7: 07/18/17 04:18 07/18/17 04:18 Labs: Short CBC 07/17/17 07/18/17 Range/Units 14:24 04:18 WBC 13.0 H D 11.3 H (4.3-11.1) K/mcL Hgb 11.0 L D 10.9 L (11.5-15.4) g/dL Hct 31.0 L 32.4 L (35.3-44.9) % Plt Count 127 L 116 L (140-400) K/mcL [facility] 07/17/17 07/18/17 14:24 04:18 Sodium 140 139 Potassium 3.4 L 4.1 Chloride 111 H 113 H Carbon Dioxide 22 21 BUN 10 11 Creatinine 0.73 0.71 Glucose 149 H 129 H Calcium 8.2 L 8.7 - Impressions Impressions Chest X-Ray 07/17/17 14:53 IMPRESSION: No evidence of pneumonia or any other acute cardiopulmonary abnormality. D/ / Mushtaq Henao / Mushtaq Henao Interpreting Provider: Mushtaq Henao Consult Discharge Plan - Plan Referrals: Dominic Carpenter MD [Primary Care Provider] -
[2017-07-18] MEDS: *HR* Buprenorphine HCl 8 MG TAB.SUBL SL SCH ×2 (12:14→21:00)
[2017-07-18 12:34] LABS: Bilirubin,Urine Negative (Negative); Blood,Urine Small (Negative); Clarity,Urine Clear (Clear); Color,Urine Yellow (Yellow); Glucose,Urine (UA) Normal (Normal); Ketones,Urine Negative (Negative); Leukocyte Esterase,Urine Negative (Negative); Nitrite,Urine Negative (Negative); Protein,Urine Negative (Neg-Trace); Specific Gravity,Urine 1.017 (1.010-1.025); Urobilinogen,Urine Normal (Normal)
[2017-07-18 12:35] LABS: Bacteria,Urine None Seen per hpf (None-Few); Hyaline Casts,Urine None Seen per lpf (None-Few); Squamous Epithelial Cell,Urine Many per lpf (None-Few); WBC,Urine 0-3 per hpf (0-3)
[2017-07-18] MEDS: Azithromycin 500 MG in D5% in Water 250 ML IVPB SCH (15:27)
[2017-07-18 20:50] LABS: CK-BB (CK isoenzymes) 0 % (0-0); CK-MB (CK isoenzymes) 0 % (0-4); CK-MM (CK-isoenzymes) 100 % (96-100)
[2017-07-18 20:50] LABS: CK-BB (CK isoenzymes) 0 % (0-0); CK-MB (CK isoenzymes) 0 % (0-4); CK-MM (CK-isoenzymes) 100 % (96-100)
[2017-07-18] MEDS: metroNIDAZOLE 500 MG TABLET PO SCH (21:00)
[2017-07-18] MEDS: Melatonin 3 MG TABLET PO PRN (21:12)
[2017-07-19] MEDS: 0.9 % Sodium Chloride 1,000 ML IVC SCH ×2 (04:27→13:29)
[2017-07-19 04:34] LABS: Hematocrit 31.4 % (35.3-44.9); Hemoglobin 10.7 g/dL (11.5-15.4); Mean Corpuscular HGB Conc 34.1 g/dL (31.6-35.5); Mean Corpuscular Hemoglobin 30.7 pg (28.0-33.3); Mean Platelet Volume 11.1 fL (9.4-12.4); Platelet Count 125 K/mcL (140-400); Red Blood Count 3.49 M/mcL (3.82-4.97); Red Cell Distribution Width 12.5 % (11.5-14.5)
[2017-07-19 04:42] LABS: BUN/Creatinine Ratio 10 (6-26); Blood Urea Nitrogen 7 mg/dL (7-20); Calcium 8.5 mg/dL (8.6-10.8); Carbon Dioxide 21 mEq/L (19-29); Chloride 111 mEq/L (98-109); Glucose 105 mg/dL (70-99); Osmolality,Calculated 288 (280-300); Potassium 3.8 mEq/L (3.5-4.5); Sodium 140 mEq/L (136-145); eGFR For African Americans > 60 (> 60); eGFR For Non-African Americans > 60 (> 60)
[2017-07-19] MEDS: *HR* Heparin 5,000 UNIT/ML VIAL SQ SCH ×4 (04:51→20:28)
[2017-07-19] MEDS: metroNIDAZOLE 500 MG TABLET PO SCH (08:11)
[2017-07-19] MEDS: Aspirin 81 MG TAB.CHEW PO SCH (08:11)
[2017-07-19] MEDS: cefTRIAXone 1,000 MG in Water for inj. (sterile) 10 ML IVP SCH (08:11)
[2017-07-19] MEDS: ARIPiprazole 5 MG TABLET PO SCH (08:11)
[2017-07-19] MEDS: *HR* Buprenorphine HCl 8 MG TAB.SUBL SL SCH ×2 (08:11→19:54)
[2017-07-19] MEDS: CarBAMazepine XR (12 hr) 100 MG TAB PO SCH ×2 (08:11→20:28)
[2017-07-19] MEDS: Fluticasone Propionate Nasal 50 MCG/SPRAY BOTTLE NS SCH (08:13)
[2017-07-19] MEDS: (Buprenorphine Hcl/Naloxone Hcl [Suboxone 8 Mg-2 Mg S) SL SCH (08:14)
[2017-07-19 08:36] LABS: CK Total (Ck Isoenzymes) 807 U/L (20-180)
[2017-07-19 08:41] LABS: CK Total (Ck Isoenzymes) 494 U/L (20-180)
--- NOTE | 2017-07-19 09:53 | Internal Med Progress Note ---
Date of Encounter: 07/19/17 Time of Encounter: 09:47 - Assessment and plan (1) Abdominal pain Current Visit: Yes Status: Acute Assessment and plan: New onset. To r/o pancreatitis and cholecystitis. Check LFTs, serum lipase. RUQ U/S. Keep NPO for now. IV hydration. Supportive care with pain control. May be discharged in am if workup negative. Qualifiers: Abdominal location: right upper quadrant Qualified Code(s): R10.11 - Right upper quadrant pain (2) Hypertension Current Visit: Yes Status: Chronic Assessment and plan: BP noted to be elevated; patient takes beta lito and ACEI at home, we will restart; Qualifiers: Hypertension type: essential hypertension Qualified Code(s): I10 - Essential (primary) hypertension (3) Chest pain Current Visit: Yes Status: Resolved Assessment and plan: likely due to Cocaine intoxication, currently resolved. Serum Troponins remained negative. Continue PRN NTG. Qualifiers: Chest pain type: precordial pain Qualified Code(s): R07.2 - Precordial pain (4) Cocaine intoxication Current Visit: Yes Status: Resolved Qualifiers: Complication of substance-induced condition: with unspecified complication Qualified Code(s): F14.929 - Cocaine use, unspecified with intoxication, unspecified (5) Polysubstance abuse Current Visit: Yes Status: Chronic (6) Depression Current Visit: Yes Status: Chronic Qualifiers: Depression Type: unspecified Qualified Code(s): F32.9 - Major depressive disorder, single episode, unspecified (7) SIRS (systemic inflammatory response syndrome) Current Visit: Yes Status: Acute Assessment and plan: Patient had fever, tachycardia and leukocytosis which is likely due to cocaine intoxication, now improved. Chest XRay showed no infiltrates; UA was not s/o- UTI. patient also had diarrhea likely withdrawal from Suboxone; now started on Subutex in the hospital. Stool c.diff toxin negative. - Subjective Interval history: Reports epigastric and right upper abdominal pain, constant, moderate to severe in intensity, radiating to back; no nausea or vomiting; has some diarrhea, likely withdrawal from Suboxone; no fever/chills, chest pain, dyspnea; - Constitutional Vitals: Temp Pulse Resp BP Pulse Ox 98.2 F 76 16 146/93 97 07/19/17 07:46 07/19/17 07:46 07/19/17 07:46 07/19/17 08:00 07/19/17 07:46 General appearance: Present: mild distress, A&O X 3, answers questions appropriately - Respiratory Respiratory exam: Present: CTAB. Absent: accessory muscle use, rales, rhonchi, wheezes - Cardiovascular Cardiovascular exam: Present: RRR, +S1, +S2, tachycardia. Absent: diastolic murmur, gallop, rubs, systolic murmur - GI/Abdominal GI/Abdominal exam: Present: normal bowel sounds, soft (tenderness in epigastrium and RUQ, no guarding/rigidity), no peritoneal signs. Absent: distended, tenderness Internal Medicine: Result - Labs CBC & Chem 7: 07/19/17 04:17 07/19/17 04:17 Labs: Short CBC 07/19/17 Range/Units 04:17 WBC 8.2 (4.3-11.1) K/mcL Hgb 10.7 L (11.5-15.4) g/dL Hct 31.4 L (35.3-44.9) % Plt Count 125 L (140-400) K/mcL BMP 07/19/17 04:17 Sodium 140 Potassium 3.8 Chloride 111 H Carbon Dioxide 21 BUN 7 Creatinine 0.69 Glucose 105 H Calcium 8.5 L Cardiac Enzymes 07/16/17 07/17/17 Range/Units 20:49 06:32 CK-MB (CK-2) 0 0 (0-4) % Urine 07/18/17 Range/Units 12:16 Urine Color Yellow (Yellow) Urine Clarity Clear (Clear) Urine pH 7.0 (5.0-8.0) pH Units Ur Specific [place] 1.017 (1.010-1.025) Urine Protein Negative (Neg-Trace) mg/dL Urine Glucose (UA) Normal (Normal) mg/dL Consult Discharge Plan - Plan Referrals: Dominic Carpenter MD [Primary Care Provider] -
[2017-07-19 10:07] LABS: Alanine Aminotransferase 31 Units/L (0-55); Albumin/Globulin Ratio 0.9 (1.1-2.2); Alkaline Phosphatase 63 Units/L (38-126); Aspartate Amino Transferase 27 Units/L (5-34); Bilirubin,Direct 0.1 mg/dL (0.0-0.5); Bilirubin,Indirect 0.1 mg/dL (0.0-1.2); Globulin 3.2 g/dL (2.4-3.5); Lipase 40 Units/L (8-78)
[2017-07-19 10:08] LABS: Albumin 2.8 g/dL (3.5-5.0); Bilirubin,Total < 0.2 mg/dL (0.2-1.2)
[2017-07-19] MEDS: Azithromycin 500 MG in D5% in Water 250 ML IVPB SCH ×2 (14:25→17:40)
[2017-07-19] MEDS ORDERED: Ketorolac 30 MG/ML VIAL IM ONE (14:38)
--- NOTE | 2017-07-19 16:56 | Electrocardiograph Report ---
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
[2017-07-19] MEDS: Lisinopril 20 MG TABLET PO SCH (18:19)
[2017-07-19] MEDS: Melatonin 3 MG TABLET PO PRN (20:28)
[2017-07-20 05:00] LABS: Basophils % 0.5 %; Eosinophils # 0.2 K/mcL (0.0-0.6); Eosinophils % 2.9 %; Hematocrit 33.5 % (35.3-44.9); Hemoglobin 11.4 g/dL (11.5-15.4); Immature Granulocytes % 0.5 % (0-4); Lymphocytes # 2.8 K/mcL (0.6-4.6); Lymphocytes % 36.2 %; Mean Corpuscular Hemoglobin 30.3 pg (28.0-33.3); Mean Corpuscular Volume 89.1 fL (83.0-100.0); Mean Platelet Volume 11.1 fL (9.4-12.4); Monocytes # 0.5 K/mcL (0.0-1.3); Monocytes % 6.8 %; Neutrophils # 4.1 K/mcL (1.6-8.9); Platelet Count 144 K/mcL (140-400); Red Blood Count 3.76 M/mcL (3.82-4.97); Red Cell Distribution Width 12.3 % (11.5-14.5); Segmented Neutrophils % 53.1 %
[2017-07-20 05:03] LABS: Alanine Aminotransferase 29 Units/L (0-55); Albumin 2.9 g/dL (3.5-5.0); Albumin/Globulin Ratio 0.8 (1.1-2.2); Alkaline Phosphatase 71 Units/L (38-126); Aspartate Amino Transferase 20 Units/L (5-34); BUN/Creatinine Ratio 15 (6-26); Bilirubin,Total 0.2 mg/dL (0.2-1.2); Blood Urea Nitrogen 12 mg/dL (7-20); Carbon Dioxide 20 mEq/L (19-29); Chloride 108 mEq/L (98-109); Globulin 3.7 g/dL (2.4-3.5); Glucose 93 mg/dL (70-99); Osmolality,Calculated 287 (280-300); Potassium 3.8 mEq/L (3.5-4.5); Sodium 139 mEq/L (136-145); Total Protein 6.6 g/dL (6.0-8.3); eGFR For African Americans > 60 (> 60); eGFR For Non-African Americans > 60 (> 60)
[2017-07-20] MEDS: *HR* Heparin 5,000 UNIT/ML VIAL SQ SCH (05:18)
[2017-07-20 07:18] VITALS: BP 134/88
[2017-07-20] MEDS: *HR* Buprenorphine HCl 8 MG TAB.SUBL SL SCH (08:11)
[2017-07-20] MEDS: ARIPiprazole 5 MG TABLET PO SCH (08:11)
[2017-07-20] MEDS: Fluticasone Propionate Nasal 50 MCG/SPRAY BOTTLE NS SCH (08:12)
[2017-07-20] MEDS: (Buprenorphine Hcl/Naloxone Hcl [Suboxone 8 Mg-2 Mg S) SL SCH (08:13)
[2017-07-20] MEDS: Lisinopril 20 MG TABLET PO SCH (08:14)
[2017-07-20] MEDS: Acetaminophen 325 MG TABLET PO PRN (08:15)
[2017-07-20] MEDS: CarBAMazepine XR (12 hr) 100 MG TAB PO SCH (08:18)
[2017-07-20] MEDS ORDERED: Azithromycin 250 MG TABLET PO SCH (09:00)
[2017-07-20] MEDS: cefTRIAXone 1,000 MG in Water for inj. (sterile) 10 ML IVP SCH (09:13)
--- NOTE | 2017-07-20 10:48 | Discharge Summary ---
Date of Encounter: 07/20/17 Time of Encounter: 10:46 - Discharge Diagnosis (1) Hypertension Priority: Secondary Status: Chronic Comments: controlled Qualifiers: Hypertension type: essential hypertension Qualified Code(s): I10 - Essential (primary) hypertension (2) Chest pain Priority: Primary Status: Resolved Comments: due to cocaine troponin negative Qualifiers: Chest pain type: precordial pain Qualified Code(s): R07.2 - Precordial pain (3) Cocaine intoxication Priority: Secondary Status: Resolved Comments: resolved Qualifiers: Complication of substance-induced condition: with unspecified complication Qualified Code(s): F14.929 - Cocaine use, unspecified with intoxication, unspecified (4) Polysubstance abuse Priority: Secondary Status: Chronic Comments: chronic - Discharge Medications Home Medications: ARIPiprazole [Abilify] 5 mg PO DAILY 07/16/17 [History] Buprenorphine HCl/Naloxone HCl [Suboxone 8 mg-2 mg Sl Film] 2 tab SL DAILY 07/16 [History] CarBAMazepine [Carbamazepine ER] 200 mg PO BID 07/16/17 [History] Fluticasone Propionate Nasal [Flonase] 1 spray NS DAILY 07/16/17 [History] Loratadine [Allergy Relief] 10 mg PO DAILY 07/16/17 [History] Ondansetron HCl [Zofran] 4 mg PO TID PRN 07/16/17 [History] Lisinopril [Zestril] 20 mg PO DAILY 07/19/17 [History] Metoprolol [Lopressor] 50 mg PO DAILY 07/19/17 [History] Allergies/Adverse Reactions: 3 Allergy/AdvReac Type Severity Reaction Status Date / Time Amoxicillin Allergy Intermediate Hives Verified 07/16/17 19:06 escitalopram [From Lexapro] Allergy Hives Verified 07/16/17 19:06 Procedures/tests Complete & Pending: Procedures Performed prior 72 hours Category Date Time Status US abdomen limited [US] Routine Exams 07/19/17 17:30 Completed ECG 12 lead ECG [ECG] Routine Y 07/18/17 11:30 Completed Date of admission: 07/16/17 19:44 Primary care physician: Dominic Carpenter Discharging clinician: Travis Armendariz Anticipated date of discharge: 07/20/17 - Patient Status Disposition: Home, Self-Care Condition: Good Overall status at discharge: patient is back to baseline - Discharge Instructions Instructions: Chest Pain (DC), Cellulitis (DC), Sepsis (DC), Chronic Hypertension (DC) - Diet and Activity Activity: other Diet: advance to your usual diet Hospital course: Ms. Scott is a 32 year old female - Time Spent with Patient Total time spent providing and/or coordinating discharge services: - Constitutional Vitals: Temp Pulse Resp BP Pulse Ox 98 F 69 16 134/88 98 07/20/17 07:16 07/20/17 07:16 07/20/17 07:16 07/20/17 07:16 07/20/17 07:16 General appearance: Present: mild distress, A&O X 3, answers questions appropriately
== END 2017-07-20 10:55 | disposition home or self-care (01) ==
LOC: 3BNU 17:21 → EMEROO 17:21 → SUATTDRO 19:44 → 3BNU 20:20
PROVIDERS: ADMIT Pediatrics; ATTEND Internal Medicine